=== PATIENT | male | born 1955 | race African-American/Black ===

== ENCOUNTER 2017-12-14 19:20 | Inpatient (IN) | payer OTHER ==
[2017-12-14 19:46] VITALS: BMI 28.2
--- NOTE | 2017-12-14 20:03 | HP ---
CIWA Score - CIWA Score Nausea/Vomitin-Mild Nausea/No Vomiting Muscle Tremors: 2 Anxiety: 3 Agitation: 4-Moderately Restless Paroxysmal Sweats: 2 Orientation: 0-Oriented Tacttile Disturbances: 0-None Auditory Disturbances: 0-None Visual Disturbances: 0-None Headache: 0-None Present CIWA-Ar Total Score: 12 Admission ROS BHS - HPI Chief Complaint: alcohol withdrawal symptoms Allergies/Adverse Reactions: Allergies Allergy/AdvReac Type Severity Reaction Status Date / Time peach [King] Allergy Mild Itching Verified 08/17/13 18:13 History of Present Illness: 62 yo male with hx of cocaine, PCPC, alcohol, heroin, THC dependence is here seeking detox. PMHX: Constipation, GERD and insomnia. Denies suicidal / homicidal ideation or hx of suicide attempts. Last detox [facility] 2013. Longest period of sobriety 3 years. Exam Limitations: No Limitations - Ebola screening Have you been sick,other than usual withdrawal symptoms: No - Review of Systems Constitutional: Chills, Diaphoresis, Changes in sleep EENT: reports: Other (uses reading glasses) Respiratory: reports: No Symptoms reported Cardiac: reports: No Symptoms Reported GI: reports: Constipated, Nausea, Poor Fluid Intake, Indigestion, Abdominal cramping : reports: No Symptoms Reported Musculoskeletal: reports: No Symptoms Reported Integumentary: reports: No Symptoms Reported Neuro: reports: No Symptoms reported Endocrine: reports: Increased Thirst Hematology: reports: No Symptoms Reported Psychiatric: reports: Orientated x3, Anxious Other Systems: Reviewed and Negative Patient History - Patient Medical History Hx Anemia: No Hx Asthma: No Hx Chronic Obstructive Pulmonary Disease (COPD): No Hx Cancer: No Hx Cardiac Disorders: No Hx Congestive Heart Failure: No Hx Hypertension: No Hx Hypercholesterolemia: No Hx Pacemaker: No HX Cerebrovascular Accident: No Hx Seizures: No Hx Dementia: No Hx Diabetes: No Hx Gastrointestinal Disorders: No Hx Liver Disease: No Hx Genitourinary Disorders: No Hx Sexually Transmitted Disorders: No Hx Renal Disease (ESRD): No Hx Thyroid Disease: No Hx Human Immunodeficiency Virus (HIV): No (last tested 2 years, declines testing ) Hx Hepatitis C: No Hx Depression: No Hx Suicide Attempt: No Hx Bipolar Disorder: No Hx Schizophrenia: No - Patient Surgical History Past Surgical History: Yes Hx Neurologic Surgery: No Hx Cataract Extraction: No Hx Cardiac Surgery: No Hx Lung Surgery: No Hx Breast Surgery: No Hx Breast Biopsy: No Hx Abdominal Surgery: Yes (SX FOR PERFORATED ULCER 04/11/12) Hx Appendectomy: No Hx Cholecystectomy: No Hx Genitourinary Surgery: No Hx Section: No Hx Orthopedic Surgery: No Other Surgical History: tonsilectomy 1985 Anesthesia Reaction: No - PPD History Previous Implant?: Yes (last PPD 09/17/17 at [facility] results negative) Documented Results: Negative w/proof Date: 01/14/13 Results: 0mm PPD to be Administered?: No - Smoking Cessation Smoking history: Current some day smoker Have you smoked in the past 12 months: Yes Aproximately how many cigarettes per day: 3 Cigars Per Day: 0 Hx Chewing Tobacco Use: No Initiated information on smoking cessation: Yes 'Breaking Loose' booklet given: 12/14/17 - Substance & Tx. History Hx Alcohol Use: Yes Hx Substance Use: Yes Substance Use Type: None, Alcohol, Cocaine, Heroin, Marijuana Hx Substance Use Treatment: Yes ([facility] 2013) - Substances Abused Alcohol Route: Oral Frequency: 3-6 times per week Amount used: 1 pint Brionna Age of first use: 13 Date of Last Use: 12/14/17 Heroin Route: Inhalation Frequency: 3-6 times per week Amount used: 3 - 5 bags Age of first use: 13 Date of Last Use: 12/12/17 Cocaine Route: Inhalation Frequency: Daily Amount used: 1/2 - 1 gram Age of first use: 13 Date of Last Use: 12/14/17 PCP Route: Smoking Frequency: 3-6 times per week Amount used: 1 - 2 dime bags Age of first use: 23 Date of Last Use: 12/12/17 Marijuana/Hashish Route: Smoking Frequency: 3-6 times per week Amount used: 1 ananth bag Age of first use: 13 Date of Last Use: 12/12/17 Family Disease History - Family Disease History Family Disease History: Other: Father (alcohol,) Admission Physical Exam BHS - Vital Signs Vital Signs: Vital Signs - 24 hr 12/14/17 19:44 Temperature 98.1 F Pulse Rate 80 Respiratory 18 Rate Blood Pressure 134/99 - Physical General Appearance: Yes: Disheveled, Thin, Sweating, Anxious HEENTM: Yes: EOMI, Hearing grossly Normal, Normal ENT Inspection, Normocephalic , Normal Voice, VIKA, Pharynx Normal, Tm's normal Respiratory: Yes: Chest Non-Tender, Lungs Clear, Normal Breath Sounds, No Respiratory Distress, No Accessory Muscle Use Neck: Yes: No masses,lesions,Nodules, Trachea in good position Breast: Yes: Breast Exam Deferred Cardiology: Yes: Regular Rhythm, Regular Rate Abdominal: Yes: Normal Bowel Sounds, Non Tender, Flat, Soft Genitourinary: Yes: Within Normal Limits Back: Yes: Normal Inspection Musculoskeletal: Yes: full range of Motion, Gait Steady, Pelvis Stable Extremities: Yes: Normal Capillary Refill, Normal Inspection, Normal Range of Motion, Non-Tender 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 NML intact, Fully Oriented, Alert, Motor Strength 5/5, Depressed Affect Integumentary: Yes: Normal Color, Warm, Moist Lymphatic: Yes: Within Normal Limits - Diagnostic (1) PCP dependence Current Visit: Yes Status: Acute (2) Alcohol dependence with withdrawal Current Visit: Yes Status: Acute Qualifiers: Complication of substance-induced condition: uncomplicated Qualified Code(s ): F10.230 - Alcohol dependence with withdrawal, uncomplicated (3) Constipation Current Visit: Yes Status: Chronic Qualifiers: Constipation type: unspecified constipation type Qualified Code(s): K59.00 - Constipation, unspecified (4) Cocaine dependence Current Visit: Yes Status: Active (5) Cannabis dependence Current Visit: Yes Status: Acute (6) Gastroesophageal reflux disease Current Visit: Yes Status: Chronic Qualifiers: Esophagitis presence: without esophagitis Qualified Code(s): K21.9 - Gastro -esophageal reflux disease without esophagitis (7) Opiate dependence Current Visit: Yes Status: Acute Cleared for Admission [facility] - Detox or Rehab [facility] Level of Care: Medically Managed Detox Regimen/Protocol: Librium [facility] Breath Alcohol Content Breath Alcohol Content: 0 Urine Drug Screen - Results Drug Screen Negative: No Urine Drug Screen Results: MARIE-Cocaine
[2017-12-14] MEDS ORDERED: guaiFENesin/D-METHORPHAN HB 10 ML UNIT-DOSE CUPS PO PRN (20:10)
[2017-12-14] MEDS ORDERED: chlordiazePOXIDE HCL 25 MG CAPSULE PO ONE (20:10)
[2017-12-14] MEDS ORDERED: MAG HYDROX/AL HYDROX/SIMETH 30 ML UNIT-DOSE CUP PO PRN (20:10)
[2017-12-14] MEDS ORDERED: MENTHOL/PHENOL 1 EACH UD MM PRN (20:10)
[2017-12-14] MEDS ORDERED: MAGNESIUM HYDROX 2400MG/30ML ORAL SUSPENSION 30 ML CUP PO PRN (20:10)
[2017-12-14] MEDS ORDERED: ACETAMINOPHEN 325 MG TABLET (FP) PO PRN (20:10)
[2017-12-14] MEDS ORDERED: chlordiazePOXIDE HCL 25 MG CAPSULE PO PRN (20:10)
[2017-12-14] MEDS ORDERED: P-EPHED 60MG/TRIPROLIDI 2.5MG TABLET PO PRN (20:10)
[2017-12-14] MEDS ORDERED: IBUPROFEN 400 MG TABLET (FP) PO PRN (20:10)
[2017-12-14] MEDS ORDERED: hydrOXYzine PAMOATE 50 MG CAPSULE (FP) PO PRN (20:10)
[2017-12-14] MEDS ORDERED: LOPERAMIDE HCL 2 MG CAPSULE PO PRN (20:10)
[2017-12-14] MEDS ORDERED: MAGNESIUM CITRATE 300 ML BOTTLE PO PRN (20:10)
[2017-12-14] MEDS: DOCUSATE SODIUM 100 MG CAPSULE (FP) PO SCH (22:53)
[2017-12-14] MEDS: THIAMINE HCL 100 MG TABLET (FP) PO SCH (22:53)
[2017-12-14] MEDS: chlordiazePOXIDE HCL 25 MG CAPSULE PO SCH (22:53)
[2017-12-14] MEDS: MELATONIN 5 MG TABLETS PO PRN (22:54)
[2017-12-15 00:06] LABS: URINE APPEARANCE CLEAR; URINE BILIRUBIN NEGATIVE (<2.0 mg/dL); URINE COLOR YELLOW; URINE GLUCOSE (UA) NEGATIVE (NEGATIVE); URINE KETONE NEGATIVE (NEGATIVE); URINE LEUK ESTERASE NEGATIVE (NEGATIVE); URINE NITRITE NEGATIVE (NEGATIVE); URINE UROBILINOGEN NEGATIVE mg/dL (0.2-1.0)
[2017-12-15 01:05] LABS: URINE PROTEIN 1+ (NEGATIVE)
[2017-12-15 01:09] LABS: EPI CELLS RARE /HPF (FEW); URINE MUCUS RARE
[2017-12-15] MEDS: chlordiazePOXIDE HCL 25 MG CAPSULE PO SCH ×4 (05:13→22:06)
[2017-12-15] MEDS: PRENATAL VITAMINS W/ FOLIC ACID TABLET (FP) PO SCH (10:04)
[2017-12-15] MEDS: DOCUSATE SODIUM 100 MG CAPSULE (FP) PO SCH ×2 (10:04→22:06)
[2017-12-15] MEDS: PANTOPRAZOLE 40 MG TABLET (FP) PO SCH (10:04)
[2017-12-15 10:10] LABS: HEMATOCRIT 36.4 % (35.4-49); HEMOGLOBIN 11.7 GM/dL (11.7-16.9); MCH 24.4 pg (25.7-33.7); MCHC 32.2 g/dl (32.0-35.9); MEAN CELL VOLUME 75.8 fl (80-96); MEAN PLT VOLUME 10.8 fl (7.5-11.1); PLATELET COUNT 99 K/MM3 (134-434); RBC 4.81 M/mm3 (4.00-5.60); RDW 15.8 % (11.9-15.9); WHITE BLOOD COUNT 4.4 K/mm3 (4.0-10.0)
[2017-12-15 10:47] LABS: ALBUMIN 3.3 g/dl (3.4-5.0); ANION GAP 8 (8-16); BLOOD UREA NITROGEN 25 mg/dL (7-18); CALCIUM 8.4 mg/dL (8.5-10.1); CHLORIDE 108 mmol/L (98-107); CO2 25 mmol/L (21-32); CREATININE 2.2 mg/dL (0.7-1.3); GLUCOSE,RANDOM 86 mg/dL (74-106); POTASSIUM 3.9 mmol/L (3.5-5.1); SGOT/AST 13 U/L (15-37); SGPT/ALT 15 U/L (12-78); SODIUM 141 mmol/L (136-145)
[2017-12-15 10:54] LABS: ALK PHOS 79 U/L (45-117); BILIRUBIN,TOTAL 0.1 mg/dL (0.2-1.0); TOT PROT 6.6 g/dl (6.4-8.2)
--- NOTE | 2017-12-15 12:09 | EKG ---
Test Reason : Blood Pressure : / mmHG Vent. Rate : 059 BPM Atrial Rate : 059 BPM P-R Int : 266 ms QRS Dur : 082 ms QT Int : 422 ms P-R-T Axes : 060 009 061 degrees QTc Int : 417 ms SINUS BRADYCARDIA WITH 1ST DEGREE A-V BLOCK OTHERWISE NORMAL ECG Confirmed by MD MARIANO, SYDNEE ([id number]) on 12/15/2017 12:08:39 PM Referred By: Doris Mcfadden Confirmed By:SYDNEE QUINTANA MD
--- NOTE | 2017-12-15 12:13 | PN ---
[facility] CIWA - CIWA Score Nausea/Vomitin-No Nausea/No Vomiting Muscle Tremors: 3 Anxiety: 5 Agitation: 4-Moderately Restless Paroxysmal Sweats: 3 Orientation: 0-Oriented Tacttile Disturbances: 3-Moderate Itch/Numb/Burn Auditory Disturbances: 0-None Visual Disturbances: 0-None Headache: 0-None Present CIWA-Ar Total Score: 18 BHS Progress Note (SOAP) Subjective: Anxious, Sweating, Constipation, Tremors. Objective: PATIENT A & O X 3, OBSERVED AMBULATING ON UNIT. NO ACUTE DISTRESS. 12/15/17 12:08 Vital Signs Temperature 96.7 F L 12/15/17 09:36 Pulse Rate 63 12/15/17 09:36 Respiratory Rate 18 12/15/17 09:36 Blood Pressure 135/84 12/15/17 09:36 O2 Sat by Pulse Oximetry (%) Laboratory Tests 12/14/17 12/15/17 12/15/17 23:50 07:15 07:15 WBC 4.4 RBC 4.81 Hgb 11.7 Hct 36.4 MCV 75.8 L MCH 24.4 L MCHC 32.2 RDW 15.8 Plt Count 99 L MPV 10.8 Sodium 141 Potassium 3.9 Chloride 108 H Carbon Dioxide 25 Anion Gap 8 BUN 25 H Creatinine 2.2 H Creat Clearance w eGFR 30.48 Random Glucose 86 Calcium 8.4 L Total Bilirubin 0.1 L AST 13 L D ALT 15 D Alkaline Phosphatase 79 Total Protein 6.6 Albumin 3.3 L Urine Color Yellow Urine Appearance Clear Urine pH 5.0 Ur Specific [place] 1.014 Urine Protein 1+ H Urine Glucose (UA) Negative Urine Ketones Negative Urine Blood Negative Urine Nitrite Negative Urine Bilirubin Negative Urine Urobilinogen Negative Ur Leukocyte Esterase Negative Urine WBC (Auto) 2 Urine RBC (Auto) 1 Ur Epithelial Cells Rare Urine Mucus Rare LABS NOTED. RPR RESULT PENDING. 12/15/17 12:12 Assessment: 12/15/17 12:10 WITHDRAWAL SYMPTOMS. THROMBOCYTOPENIA. 12/15/17 12:12 Plan: CONTINUE DETOX. INCREASE DAILY PO FLUID INTAKE. D/C IBUPROFEN AND MAGNESIUM-CONTAINING MEDS. FOR ABNORMAL ADMISSION RENAL LAB VALUES.
--- NOTE | 2017-12-15 12:37 | CONSULT ---
[facility] Psychiatric Consult - Data Date of interview: 12/15/17 Admission source: [facility] Identifying data: Readmission to [facility] for this 62 y/o AA male seeking detox treatment on 3 for alcohol,cannabis,phencyclidine,opioid and cocaine dependence.Patient is single without dependents,domiciled,unemployed and supported on [facility] benefits. Substance Abuse History: Confirmed by patient in this session.Smoking history: Current some day smoker. Have you smoked in the past 12 months: Yes. Aproximately how many cigarettes per day: 3. Cigars Per Day: 0. Hx Chewing Tobacco Use: No. Initiated information on smoking cessation: Yes. 'Breaking Loose' booklet given: 12/14/17. - Substance & Tx. History. Hx Alcohol Use: Yes. Hx Substance Use: Yes. Substance Use Type: None, Alcohol, Cocaine, Heroin , Marijuana. Hx Substance Use Treatment: Yes ([facility] 2013). - Substances Abused. Alcohol. Route: Oral. Frequency: 3-6 times per week. Amount used : 1 pint Brionna. Age of first use: 13. Date of Last Use: 12/14/17. Heroin. Route: Inhalation. Frequency: 3-6 times per week. Amount used: 3 - 5 bags. Age of first use: 13. Date of Last Use: 12/12/17. Cocaine. Route: Inhalation. Frequency: Daily. Amount used: 1/2 - 1 gram. Age of first use: 13. Date of Last Use: 12/14/17. PCP. Route: Smoking. Frequency: 3-6 times per week. Amount used: 1 - 2 dime bags. Age of first use: 23. Date of Last Use: 12/12/17. Marijuana/Hashish. Route: Smoking. Frequency: 3-6 times per week. Amount used: 1 ananth bag. Age of first use: 13. Date of Last Use: 12/12/17 Medical History: GERD and a history of abdominal surgery (perforated ulcer) + tonsillectomy. Psychiatric History: Patient denies. Physical/Sexual Abuse/Trauma History: Patient denies. Additional Comment: Urine Drug Screen Results: MARIE-Cocaine.Noted. Mental Status Exam - Mental Status Exam Alert and Oriented to: Time, Place, Person Cognitive Function: Good Patient Appearance: Well Groomed (covered with tattoos : arms,forearms,neck) Mood: Hopeful, Euthymic Affect: Appropriate, Normal Range Patient Behavior: Fatigued, Cooperative Speech Pattern: Clear, Appropriate Voice Loudness: Normal Thought Process: Intact, Goal Oriented Thought Disorder: Not Present Hallucinations: Denies Suicidal Ideation: Denies Homicidal Ideation: Denies Insight/Judgement: Poor Sleep: Well Appetite: Good Muscle strength/Tone: Normal Gait/Station: Normal Psychiatric Findings - Problem List ([place] 1, 2,3) (1) Alcohol dependence with withdrawal Status: Acute Qualifiers: Complication of substance-induced condition: uncomplicated Qualified Code(s ): F10.230 - Alcohol dependence with withdrawal, uncomplicated (2) Cocaine dependence Status: Active (3) Nicotine dependence Status: Acute - Initial Treatment Plan Initial Treatment Plan: Psychoeducation.Sleep hygiene.Detoxification.Observation.
[2017-12-15] MEDS: THIAMINE HCL 100 MG TABLET (FP) PO SCH (22:06)
[2017-12-15] MEDS: MELATONIN 5 MG TABLETS PO PRN (22:07)
[2017-12-16] MEDS: chlordiazePOXIDE HCL 25 MG CAPSULE PO SCH ×3 (05:57→17:20)
[2017-12-16] MEDS: PRENATAL VITAMINS W/ FOLIC ACID TABLET (FP) PO SCH (10:06)
[2017-12-16] MEDS: PANTOPRAZOLE 40 MG TABLET (FP) PO SCH (10:06)
[2017-12-16] MEDS: DOCUSATE SODIUM 100 MG CAPSULE (FP) PO SCH ×2 (10:06→22:12)
[2017-12-16] MEDS: SENNOSIDES 8.6MG TABLET (FP) PO SCH ×2 (10:10→22:12)
--- NOTE | 2017-12-16 11:19 | PN ---
S CIWA - CIWA Score Nausea/Vomitin-No Nausea/No Vomiting Muscle Tremors: 2 Anxiety: 4-Mod. Anxious/Guarded Agitation: 4-Moderately Restless Paroxysmal Sweats: 2 Orientation: 0-Oriented Tacttile Disturbances: 2-Mild Itch/Numbness/Burn Auditory Disturbances: 0-None Visual Disturbances: 0-None Headache: 0-None Present CIWA-Ar Total Score: 14 BHS Progress Note (SOAP) Subjective: Sweating, Tremors, Anxious, Constipation. Objective: PATIENT A & O X 3, OBSERVED AMBULATING ON UNIT. NO ACUTE DISTRESS. 12/16/17 11:20 Vital Signs Temperature 97.4 F L 12/16/17 06:17 Pulse Rate 51 L 12/16/17 06:17 Respiratory Rate 18 12/16/17 06:17 Blood Pressure 113/68 12/16/17 06:17 O2 Sat by Pulse Oximetry (%) Laboratory Tests 12/14/17 12/15/17 12/15/17 23:50 07:15 07:15 WBC 4.4 RBC 4.81 Hgb 11.7 Hct 36.4 MCV 75.8 L MCH 24.4 L MCHC 32.2 RDW 15.8 Plt Count 99 L MPV 10.8 Sodium 141 Potassium 3.9 Chloride 108 H Carbon Dioxide 25 Anion Gap 8 BUN 25 H Creatinine 2.2 H Creat Clearance w eGFR 30.48 Random Glucose 86 Calcium 8.4 L Total Bilirubin 0.1 L AST 13 L D ALT 15 D Alkaline Phosphatase 79 Total Protein 6.6 Albumin 3.3 L Urine Color Yellow Urine Appearance Clear Urine pH 5.0 Ur Specific [place] 1.014 Urine Protein 1+ H Urine Glucose (UA) Negative Urine Ketones Negative Urine Blood Negative Urine Nitrite Negative Urine Bilirubin Negative Urine Urobilinogen Negative Ur Leukocyte Esterase Negative Urine WBC (Auto) 2 Urine RBC (Auto) 1 Ur Epithelial Cells Rare Urine Mucus Rare LABS NOTED. RPR RESULT PENDING. 12/16/17 11:22 Assessment: 12/16/17 11:21 WITHDRAWAL SYMPTOMS. Plan: CONTINUE DETOX. SENNA (ALONG WITH PREVIOUSLY PRESCRIBED COLACE) BID FOR CONSTIPATION.
[2017-12-16] MEDS: THIAMINE HCL 100 MG TABLET (FP) PO SCH (22:12)
[2017-12-16] MEDS: MELATONIN 5 MG TABLETS PO PRN (22:12)
[2017-12-16] MEDS: chlordiazePOXIDE 5 MG CAPSULE PO SCH (22:12)
[2017-12-17] MEDS: chlordiazePOXIDE 5 MG CAPSULE PO SCH ×3 (05:43→18:02)
[2017-12-17] MEDS: DOCUSATE SODIUM 100 MG CAPSULE (FP) PO SCH ×2 (10:18→22:18)
[2017-12-17] MEDS: PANTOPRAZOLE 40 MG TABLET (FP) PO SCH (10:19)
[2017-12-17] MEDS: PRENATAL VITAMINS W/ FOLIC ACID TABLET (FP) PO SCH (10:19)
[2017-12-17] MEDS: SENNOSIDES 8.6MG TABLET (FP) PO SCH ×2 (10:19→22:18)
--- NOTE | 2017-12-17 12:59 | PN ---
BHS Progress Note (SOAP) Subjective: Anxious, Constipation (Improving). Objective: PATIENT A & O X 3, OBSERVED AMBULATING ON UNIT. NO ACUTE DISTRESS. 12/17/17 12:57 Vital Signs Temperature 97.5 F L 12/17/17 09:20 Pulse Rate 71 12/17/17 09:20 Respiratory Rate 18 12/17/17 09:20 Blood Pressure 124/77 12/17/17 09:20 O2 Sat by Pulse Oximetry (%) Laboratory Tests 12/14/17 12/15/17 12/15/17 23:50 07:15 07:15 WBC 4.4 RBC 4.81 Hgb 11.7 Hct 36.4 MCV 75.8 L MCH 24.4 L MCHC 32.2 RDW 15.8 Plt Count 99 L MPV 10.8 Sodium 141 Potassium 3.9 Chloride 108 H Carbon Dioxide 25 Anion Gap 8 BUN 25 H Creatinine 2.2 H Creat Clearance w eGFR 30.48 Random Glucose 86 Calcium 8.4 L Total Bilirubin 0.1 L AST 13 L D ALT 15 D Alkaline Phosphatase 79 Total Protein 6.6 Albumin 3.3 L Urine Color Yellow Urine Appearance Clear Urine pH 5.0 Ur Specific [place] 1.014 Urine Protein 1+ H Urine Glucose (UA) Negative Urine Ketones Negative Urine Blood Negative Urine Nitrite Negative Urine Bilirubin Negative Urine Urobilinogen Negative Ur Leukocyte Esterase Negative Urine WBC (Auto) 2 Urine RBC (Auto) 1 Ur Epithelial Cells Rare Urine Mucus Rare RPR Titer 12/15/17 07:15 WBC RBC Hgb Hct MCV MCH MCHC RDW Plt Count MPV Sodium Potassium Chloride Carbon Dioxide Anion Gap BUN Creatinine Creat Clearance w eGFR Random Glucose Calcium Total Bilirubin AST ALT Alkaline Phosphatase Total Protein Albumin Urine Color Urine Appearance Urine pH Ur Specific [place] Urine Protein Urine Glucose (UA) Urine Ketones Urine Blood Urine Nitrite Urine Bilirubin Urine Urobilinogen Ur Leukocyte Esterase Urine WBC (Auto) Urine RBC (Auto) Ur Epithelial Cells Urine Mucus RPR Titer Nonreactive LABS NOTED. Assessment: 12/17/17 12:58 WITHDRAWAL SYMPTOMS. Plan: CONTINUE DETOX. INCREASE DAILY PO FLUID INTAKE. PATIENT SCHEDULED FOR D/C TOMORROW.
[2017-12-17] MEDS: THIAMINE HCL 100 MG TABLET (FP) PO SCH (22:18)
[2017-12-17] MEDS: MELATONIN 5 MG TABLETS PO PRN (22:18)
[2017-12-17] MEDS: chlordiazePOXIDE HCL 10 MG CAPSULE PO SCH (22:18)
[2017-12-18] MEDS: chlordiazePOXIDE HCL 10 MG CAPSULE PO SCH ×3 (05:42→17:34)
[2017-12-18] MEDS: DOCUSATE SODIUM 100 MG CAPSULE (FP) PO SCH ×2 (10:20→22:26)
[2017-12-18] MEDS: PANTOPRAZOLE 40 MG TABLET (FP) PO SCH (10:20)
[2017-12-18] MEDS: PRENATAL VITAMINS W/ FOLIC ACID TABLET (FP) PO SCH (10:20)
[2017-12-18] MEDS: SENNOSIDES 8.6MG TABLET (FP) PO SCH ×2 (10:21→22:27)
--- NOTE | 2017-12-18 16:17 | PN ---
BHS Progress Note (SOAP) Subjective: Anxious, Constipation. Objective: PATIENT A & O X 3, OBSERVED AMBULATING ON UNIT. NO ACUTE DISTRESS. 12/18/17 16:17 Vital Signs Temperature 97.7 F 12/18/17 14:16 Pulse Rate 56 L 12/18/17 14:16 Respiratory Rate 20 12/18/17 14:16 Blood Pressure 108/59 12/18/17 14:16 O2 Sat by Pulse Oximetry (%) Laboratory Tests 12/14/17 12/15/17 12/15/17 23:50 07:15 07:15 WBC 4.4 RBC 4.81 Hgb 11.7 Hct 36.4 MCV 75.8 L MCH 24.4 L MCHC 32.2 RDW 15.8 Plt Count 99 L MPV 10.8 Sodium 141 Potassium 3.9 Chloride 108 H Carbon Dioxide 25 Anion Gap 8 BUN 25 H Creatinine 2.2 H Creat Clearance w eGFR 30.48 Random Glucose 86 Calcium 8.4 L Total Bilirubin 0.1 L AST 13 L D ALT 15 D Alkaline Phosphatase 79 Total Protein 6.6 Albumin 3.3 L Urine Color Yellow Urine Appearance Clear Urine pH 5.0 Ur Specific [place] 1.014 Urine Protein 1+ H Urine Glucose (UA) Negative Urine Ketones Negative Urine Blood Negative Urine Nitrite Negative Urine Bilirubin Negative Urine Urobilinogen Negative Ur Leukocyte Esterase Negative Urine WBC (Auto) 2 Urine RBC (Auto) 1 Ur Epithelial Cells Rare Urine Mucus Rare RPR Titer 12/15/17 07:15 WBC RBC Hgb Hct MCV MCH MCHC RDW Plt Count MPV Sodium Potassium Chloride Carbon Dioxide Anion Gap BUN Creatinine Creat Clearance w eGFR Random Glucose Calcium Total Bilirubin AST ALT Alkaline Phosphatase Total Protein Albumin Urine Color Urine Appearance Urine pH Ur Specific [place] Urine Protein Urine Glucose (UA) Urine Ketones Urine Blood Urine Nitrite Urine Bilirubin Urine Urobilinogen Ur Leukocyte Esterase Urine WBC (Auto) Urine RBC (Auto) Ur Epithelial Cells Urine Mucus RPR Titer Nonreactive LABS NOTED. Assessment: 12/18/17 16:18 WITHDRAWAL SYMPTOMS. Plan: CONTINUE DETOX.
[2017-12-18] MEDS: MELATONIN 5 MG TABLETS PO PRN (22:27)
[2017-12-18] MEDS: THIAMINE HCL 100 MG TABLET (FP) PO SCH (22:27)
--- NOTE | 2017-12-19 09:03 | PN ---
BHS Progress Note (SOAP) Subjective: PATIENT REPORTS THAT HE HAS BEEN HEARING VOICES INSTRUCTING HIM TO HURT HIMSELF. PATIENT REPORTS THAT HE HAS BEEN HEARING THESE VOICES FOR SEVERAL DAYS BUT THAT HE "THOUGHT THAT THE VOICES WOULD GET BETTER ON THEIR OWN." Objective: PATIENT A & O X 3, OBSERVED AMBULATING ON UNIT. 12/19/17 09:01 Vital Signs Temperature 97.9 F 12/19/17 06:25 Pulse Rate 59 L 12/19/17 06:25 Respiratory Rate 18 12/19/17 06:25 Blood Pressure 121/83 12/19/17 06:25 O2 Sat by Pulse Oximetry (%) Laboratory Tests 12/14/17 12/15/17 12/15/17 23:50 07:15 07:15 WBC 4.4 RBC 4.81 Hgb 11.7 Hct 36.4 MCV 75.8 L MCH 24.4 L MCHC 32.2 RDW 15.8 Plt Count 99 L MPV 10.8 Sodium 141 Potassium 3.9 Chloride 108 H Carbon Dioxide 25 Anion Gap 8 BUN 25 H Creatinine 2.2 H Creat Clearance w eGFR 30.48 Random Glucose 86 Calcium 8.4 L Total Bilirubin 0.1 L AST 13 L D ALT 15 D Alkaline Phosphatase 79 Total Protein 6.6 Albumin 3.3 L Urine Color Yellow Urine Appearance Clear Urine pH 5.0 Ur Specific [place] 1.014 Urine Protein 1+ H Urine Glucose (UA) Negative Urine Ketones Negative Urine Blood Negative Urine Nitrite Negative Urine Bilirubin Negative Urine Urobilinogen Negative Ur Leukocyte Esterase Negative Urine WBC (Auto) 2 Urine RBC (Auto) 1 Ur Epithelial Cells Rare Urine Mucus Rare RPR Titer 12/15/17 07:15 WBC RBC Hgb Hct MCV MCH MCHC RDW Plt Count MPV Sodium Potassium Chloride Carbon Dioxide Anion Gap BUN Creatinine Creat Clearance w eGFR Random Glucose Calcium Total Bilirubin AST ALT Alkaline Phosphatase Total Protein Albumin Urine Color Urine Appearance Urine pH Ur Specific [place] Urine Protein Urine Glucose (UA) Urine Ketones Urine Blood Urine Nitrite Urine Bilirubin Urine Urobilinogen Ur Leukocyte Esterase Urine WBC (Auto) Urine RBC (Auto) Ur Epithelial Cells Urine Mucus RPR Titer Nonreactive LABS NOTED. Assessment: 12/19/17 09:01 COMMAND AUDITORY HALLUCINATIONS ( REPORTED BY PATIENT). Plan: PATIENT IMMEDIATELY PLACED ON 1:1 CONTINUOUS OBSERVATION STATUS FOR SAFETY. PATIENT REFERRED TO PSYCHIATRIST DR. KIDD FOR FURTHER EVALUATION.
--- NOTE | 2017-12-19 10:27 | PN ---
Psychiatric Progress Note Vital Signs: Vital Signs Period Temp Pulse Resp BP Sys/Caceres Pulse Ox Last 24 Hr 97.1 F-97.9 F 54-59 16-20 108-125/59-88 Date of Session: 12/19/17 Chief Complaint:: " I am depressed.I hear voices telling me to kill myself." HPI: Case of a 62 y/o AA male admitted to [address] [place] [address] for detoxification treatment for alcohol, heroin,cocaine,phencyclidine,cannabis, initially scheduled for discharge today,who approached his counselor with complaints of dysphoria and command auditory hallucinations to commit suicide.Patient is adamant that, if discharged, he will acquire a gun to end his life. ROS: Patient is alert and fully oriented.Ambulatory.No somatic complaints offered. Current Medications: Active Medications Generic Name Dose Route Start Last Admin Trade Name Freq PRN Reason Stop Dose Admin Acetaminophen 650 mg 12/14/17 20:10 Tylenol - PO Q4H PRN FEVER Docusate Sodium 100 mg 12/14/17 22:00 12/18/17 22:26 Colace - PO 100 mg BID LAVERNE Administration Eucalyptus/Menthol/Phenol/Sorbitol 1 each 12/14/17 20:10 Cepastat Lozenge - MM Q4H PRN SORE THROAT Guaifenesin 10 ml 12/14/17 20:10 Robitussin Dm - PO Q6H PRN COUGH Hydroxyzine Pamoate 50 mg 12/14/17 20:10 Vistaril - PO Q4H PRN AGITATION Loperamide HCl 4 mg 12/14/17 20:10 Imodium - PO Q6H PRN DIARRHEA Melatonin 5 mg 12/14/17 22:00 12/18/17 22:27 Melatonin PO 5 mg HS PRN Administration INSOMNIA Pantoprazole Sodium 40 mg 12/15/17 10:00 12/18/17 10:20 Protonix - PO 40 mg DAILY LAVERNE Administration Multivit/Folic Acid/Iron 1 tab 12/15/17 10:00 12/18/17 10:20 Vitamins (Sjr) - PO 1 tab DAILY LAVERNE Administration Pseudoephedrine/Triprolidine 1 combo 12/14/17 20:10 Actifed - PO TID PRN NASAL CONGESTION Senna 1 tab 12/16/17 10:00 12/18/17 22:27 Senna - PO 1 tab BID LAVERNE Administration Thiamine HCl 100 mg 12/14/17 22:00 12/18/17 22:27 Vitamin B1 - PO 100 mg HS LAVERNE Administration Medication(s) Change(s): None.Except for medications for detoxification, no psychotropic drugs are prescribed.Will medicate with haldol 1 mg po bid.Side effects/beneits discussed with patient.Mr Wise agrees to this plan. Current Side Effect: No Lab tests ordered: No Lab tests reviewed: Yes Provider note:: Case presented by medical [employer] Simon.Chart reviewed.Patient is interviewed.Mr iWse reports that he has been feeling increasingly depressed, hopeless and demoralized.He states that the " voices " have become louder, more pejorative and persistent." They are saying that I am a failure and that I better kill myself." Patient indicates that he has been experiencing these hallucinations for a few days.He states that he " does not trust " himself and he is fearful that, if allowed to return home, he will follow the commands of " the voices ".Patient seems to be determined to escalate into action as evidenced by his intent/plan to acquire a weapon (gun) to commit suicide.Mr Wise is in acute crisis and, at this time, he represents a clear + immediate danger to himself.Discharge is cancelled.Patient is currently under Constant Observation (1:1) for safety.Mr Wise needs inpatient psychiatric care at another institution.Awaits bed at [facility]. Total face to face time:: 45 Mental Status Exam - Mental Status Exam Alert and Oriented to: Time, Place, Person Cognitive Function: Good Patient Appearance: Well Groomed Mood: Nervous, Withdrawn, Anxious Affect: Mood Congruent, Constricted Patient Behavior: Cooperative Speech Pattern: Clear, Appropriate Voice Loudness: Normal Thought Process: Intact, Goal Oriented Thought Disorder: Not Present Hallucinations: Auditory (voices berating hime and instructing him to get a weapon and kill himself) Suicidal Ideation: Current, Plan Homicidal Ideation: Denies Insight/Judgement: Poor, Impaired Sleep: Well Appetite: Fair Muscle strength/Tone: Normal Gait/Station: Normal Psychiatric Treatment Plan - Problem List (1) Suicide risk Comment: . (2) Psychosis Comment: . (3) Alcohol dependence with withdrawal Qualifiers: Complication of substance-induced condition: uncomplicated Qualified Code(s ): F10.230 - Alcohol dependence with withdrawal, uncomplicated Comment: . (4) Cocaine dependence Comment: . (6) Substance induced mood disorder Comment: .
[2017-12-19] MEDS: DOCUSATE SODIUM 100 MG CAPSULE (FP) PO SCH ×2 (10:46→22:15)
[2017-12-19] MEDS: PANTOPRAZOLE 40 MG TABLET (FP) PO SCH (10:46)
[2017-12-19] MEDS: PRENATAL VITAMINS W/ FOLIC ACID TABLET (FP) PO SCH (10:47)
[2017-12-19] MEDS: SENNOSIDES 8.6MG TABLET (FP) PO SCH ×2 (10:47→22:15)
[2017-12-19] MEDS ORDERED: HALOPERIDOL 1 MG TABLET (FP) PO PRN (12:39)
--- NOTE | 2017-12-19 12:41 | PN ---
[facility] Progress Note Note: Psychiatry Attending's note : Spoke to the production cook psychiatrist, Dr Gomez. At [facility] ([phone]). No bed available.
[2017-12-19] MEDS ORDERED: HALOPERIDOL 1 MG TABLET (FP) PO ONE (12:45)
[2017-12-19] MEDS: THIAMINE HCL 100 MG TABLET (FP) PO SCH (22:15)
[2017-12-19] MEDS: MELATONIN 5 MG TABLETS PO PRN (22:16)
[2017-12-20 09:23] VITALS: TEMP 98
[2017-12-20] MEDS: PANTOPRAZOLE 40 MG TABLET (FP) PO SCH (11:04)
[2017-12-20] MEDS: DOCUSATE SODIUM 100 MG CAPSULE (FP) PO SCH (11:04)
[2017-12-20] MEDS: PRENATAL VITAMINS W/ FOLIC ACID TABLET (FP) PO SCH (11:04)
[2017-12-20] MEDS: SENNOSIDES 8.6MG TABLET (FP) PO SCH (11:04)
--- NOTE | 2017-12-20 11:46 | PN ---
[facility] Progress Note Note: Psychiatry Attending's geriatric personal care aide note : Spoke to RN Cici. Issue : follow up of patient. Chart reviewed. Psychiatric re-evaluation : pending. Endorsed to Dr Nguyen.
[2017-12-20 12:01] VITALS: BP 94/60; PULSE 67
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
[2017-12-20] MEDS ORDERED: ZOLPIDEM TARTRATE 5 MG TABLET PO PRN (12:18)
--- NOTE | 2017-12-20 12:42 | PN ---
[facility] Progress Note (SOAP) Subjective: States feel good Slept well Still hearing voices to kill himself or others Objective: 12/20/17 12:41 still on 1:1 monitoring Not in acute distress Vital Signs Temperature 98 F 12/20/17 09:23 Pulse Rate 67 12/20/17 12:00 Respiratory Rate 18 12/20/17 12:00 Blood Pressure 94/60 12/20/17 12:00 O2 Sat by Pulse Oximetry (%) Assessment: 12/20/17 12:44 Detox completed, pending safe discharge 1;1 monitoring for safety Plan: Detox completed, pending clearance from psych on the next step
== END 2017-12-20 13:58 | disposition short-term general hospital (02) | DRG 897 ==
LOC: YASAS 19:20 → Y3N 21:06
PROVIDERS: ADMIT Surgery; ATTEND Surgery
PROC: HZ2ZZZZ Detoxification Services for Substance Abuse Treatment (ICD-10-PCS; principal; 2017-12-14)
DX: F11.20 Opioid dependence, uncomplicated (principal); F10.230 Alcohol dependence with withdrawal, uncomplicated; F14.20 Cocaine dependence, uncomplicated; F16.20 Hallucinogen dependence, uncomplicated; F33.9 Major depressive disorder, recurrent, unspecified; F19.282 Other psychoactive substance dependence with psychoactive substance-induced sleep disorder; R45.851 Suicidal ideations; F12.20 Cannabis dependence, uncomplicated; F17.210 Nicotine dependence, cigarettes, uncomplicated; F19.24 Other psychoactive substance dependence with psychoactive substance-induced mood disorder; F29 Unspecified psychosis not due to a substance or known physiological condition; K21.9 Gastro-esophageal reflux disease without esophagitis; K59.00 Constipation, unspecified
CPT/HCPCS: 36415; 80053; 81003; 81015; 85027; 86593; 93005; 93010

== ENCOUNTER 2022-07-16 11:07 | Inpatient (IN) | payer OTHER ==
[2022-07-16 14:35] VITALS: BMI 28.8
[2022-07-16] MEDS ORDERED: guaiFENesin 200 MG/10 ML 10 ML UNIT-DOSE CUPS PO PRN (16:43)
[2022-07-16] MEDS ORDERED: P-EPHED 60MG/TRIPROLIDI 2.5MG TABLET PO PRN (16:43)
[2022-07-16] MEDS ORDERED: MAGNESIUM HYDROX 2400MG/30ML ORAL SUSPENSION 30 ML CUP PO PRN (16:43)
[2022-07-16] MEDS ORDERED: BENZOCAINE/MENTHOL (CHLORASEPTIC ) LOZENGE MM PRN (16:43)
[2022-07-16] MEDS ORDERED: POLYETHYLENE GLYCOL (HEALTHYLAX) 3350 17 GM PACKET PO PRN (16:43)
[2022-07-16] MEDS ORDERED: LOPERAMIDE HCL 2 MG CAPSULE PO PRN (16:43)
[2022-07-16] MEDS ORDERED: MAG HYDROX/AL HYDROX/SIMETH 30 ML UNIT-DOSE CUP PO PRN (16:43)
[2022-07-16] MEDS ORDERED: ACETAMINOPHEN 325 MG TABLET (FP) PO PRN (16:43)
[2022-07-16] MEDS ORDERED: IBUPROFEN 400 MG TABLET (FP) PO PRN (16:43)
[2022-07-16] MEDS ORDERED: NICOTINE 10 MG CARTRIDGE (INHALER) IH PRN (16:43)
[2022-07-16] MEDS: THIAMINE HCL 100 MG TABLET (FP) PO SCH (22:03)
[2022-07-16] MEDS: MELATONIN 5 MG TABLETS PO SCH (22:03)
[2022-07-16] MEDS: hydrOXYzine PAMOATE 25 MG CAPSULE (FP) PO PRN (22:04)
[2022-07-16 22:23] VITALS: RESP 18
[2022-07-17] MEDS: PRENATAL VITAMINS W/ FOLIC ACID TABLET (FP) PO SCH (10:22)
[2022-07-17] MEDS: DOCUSATE SODIUM 100 MG CAPSULE (FP) PO SCH ×2 (11:09→22:05)
[2022-07-17] MEDS: amLODIPine BESYLATE 5 MG TABLET (FP) PO SCH (11:09)
[2022-07-17 12:25] LABS: HEMATOCRIT 36.9 % (35.4-49); HEMOGLOBIN 11.9 GM/dL (11.7-16.9); MCH 24.3 pg (25.7-33.7); MCHC 32.3 g/dl (32.0-35.9); MEAN CELL VOLUME 75.4 fl (80-96); PLATELET COUNT 133 10^3/uL (134-434); RDW 16.1 % (11.9-15.9); WHITE BLOOD COUNT 3.9 K/mm3 (4.0-10.0)
[2022-07-17 12:25] LABS: EPI CELLS 2 /uL (0-25.1); HYALINE CASTS 0 /uL (0-3.1); URINE APPEARANCE CLEAR; URINE BACTERIA 2 /uL (0-1359); URINE BILIRUBIN NEGATIVE (NEGATIVE); URINE COLOR YELLOW; URINE GLUCOSE (UA) NEGATIVE (NEGATIVE); URINE KETONE NEGATIVE (NEGATIVE); URINE LEUK ESTERASE NEGATIVE (NEGATIVE); URINE NITRITE NEGATIVE (NEGATIVE); URINE PROTEIN 2+ (NEGATIVE); URINE RBC 16 /uL (0-23.9); URINE UROBILINOGEN 0.2 mg/dL (0.2-1.0); URINE WBC 6 /uL (0-25.8)
[2022-07-17 12:35] LABS: BLOOD UREA NITROGEN 40.5 mg/dL (7-18)
[2022-07-17 12:36] LABS: ALBUMIN 3.5 g/dl (3.4-5.0); CALCIUM 8.8 mg/dL (8.5-10.1)
[2022-07-17 12:37] LABS: CREATININE 2.6 mg/dL (0.55-1.3)
[2022-07-17 12:38] LABS: BILIRUBIN,TOTAL 0.5 mg/dL (0.2-1); TOT PROT 7.3 g/dl (6.4-8.2)
[2022-07-17] MEDS: hydrOXYzine PAMOATE 25 MG CAPSULE (FP) PO PRN (22:05)
[2022-07-17] MEDS: traZODone HCL 100 MG TABLET (FP) PO PRN (22:05)
[2022-07-17] MEDS: MELATONIN 5 MG TABLETS PO SCH (22:05)
[2022-07-17] MEDS: THIAMINE HCL 100 MG TABLET (FP) PO SCH (22:05)
[2022-07-18] MEDS: PRENATAL VITAMINS W/ FOLIC ACID TABLET (FP) PO SCH (10:34)
[2022-07-18] MEDS: amLODIPine BESYLATE 5 MG TABLET (FP) PO SCH (10:34)
[2022-07-18] MEDS: DOCUSATE SODIUM 100 MG CAPSULE (FP) PO SCH ×2 (10:34→21:18)
[2022-07-18] MEDS: THIAMINE HCL 100 MG TABLET (FP) PO SCH (21:18)
[2022-07-18] MEDS: MELATONIN 5 MG TABLETS PO SCH (21:19)
[2022-07-18] MEDS: traZODone HCL 100 MG TABLET (FP) PO PRN (21:20)
[2022-07-18] MEDS: hydrOXYzine PAMOATE 25 MG CAPSULE (FP) PO PRN (21:20)
[2022-07-18] MEDS: APIXABAN 5 MG TABLET PO SCH (22:16)
[2022-07-19] MEDS: amLODIPine BESYLATE 5 MG TABLET (FP) PO SCH (10:19)
[2022-07-19] MEDS: DOCUSATE SODIUM 100 MG CAPSULE (FP) PO SCH ×2 (10:19→21:51)
[2022-07-19] MEDS: APIXABAN 5 MG TABLET PO SCH ×2 (10:19→21:51)
[2022-07-19] MEDS: PRENATAL VITAMINS W/ FOLIC ACID TABLET (FP) PO SCH (10:19)
[2022-07-19] MEDS: THIAMINE HCL 100 MG TABLET (FP) PO SCH (21:51)
[2022-07-19] MEDS: MELATONIN 5 MG TABLETS PO SCH (21:51)
[2022-07-19] MEDS: traZODone HCL 100 MG TABLET (FP) PO PRN (21:51)
[2022-07-20] MEDS: PRENATAL VITAMINS W/ FOLIC ACID TABLET (FP) PO SCH (10:21)
[2022-07-20] MEDS: amLODIPine BESYLATE 5 MG TABLET (FP) PO SCH (10:21)
[2022-07-20] MEDS: APIXABAN 5 MG TABLET PO SCH ×2 (10:21→21:16)
[2022-07-20] MEDS: DOCUSATE SODIUM 100 MG CAPSULE (FP) PO SCH ×2 (10:22→21:16)
[2022-07-20] MEDS: traZODone HCL 100 MG TABLET (FP) PO PRN (21:16)
[2022-07-20] MEDS: THIAMINE HCL 100 MG TABLET (FP) PO SCH (21:17)
[2022-07-20] MEDS: MELATONIN 5 MG TABLETS PO SCH (22:15)
[2022-07-21] MEDS: amLODIPine BESYLATE 5 MG TABLET (FP) PO SCH (10:18)
[2022-07-21] MEDS: DOCUSATE SODIUM 100 MG CAPSULE (FP) PO SCH ×2 (10:18→22:01)
[2022-07-21] MEDS: PRENATAL VITAMINS W/ FOLIC ACID TABLET (FP) PO SCH (10:18)
[2022-07-21] MEDS: APIXABAN 5 MG TABLET PO SCH ×2 (10:18→22:01)
[2022-07-21] MEDS: MELATONIN 5 MG TABLETS PO SCH (22:01)
[2022-07-21] MEDS: THIAMINE HCL 100 MG TABLET (FP) PO SCH (22:02)
[2022-07-22 07:18] VITALS: PULSE 66; TEMP 98
[2022-07-22] MEDS: PRENATAL VITAMINS W/ FOLIC ACID TABLET (FP) PO SCH (09:57)
[2022-07-22] MEDS: DOCUSATE SODIUM 100 MG CAPSULE (FP) PO SCH (09:57)
[2022-07-22] MEDS: APIXABAN 5 MG TABLET PO SCH (09:57)
[2022-07-22] MEDS: amLODIPine BESYLATE 5 MG TABLET (FP) PO SCH (09:57)
[2022-07-22 11:23] VITALS: BP 145/94
== END 2022-07-22 14:15 | disposition home or self-care (01) | DRG 895 ==
LOC: YASAS 11:07 → Y5N 20:36
PROVIDERS: ADMIT Allergy & Immunology; ATTEND Allergy & Immunology
PROC: HZ42ZZZ Group Counseling for Substance Abuse Treatment, Cognitive-Behavioral (ICD-10-PCS; principal; 2022-07-16)
DX: F11.20 Opioid dependence, uncomplicated (principal); F14.20 Cocaine dependence, uncomplicated; F19.282 Other psychoactive substance dependence with psychoactive substance-induced sleep disorder; I82.5Y3 Chronic embolism and thrombosis of unspecified deep veins of proximal lower extremity, bilateral; F10.20 Alcohol dependence, uncomplicated; F12.20 Cannabis dependence, uncomplicated; F17.210 Nicotine dependence, cigarettes, uncomplicated; F10.282 Alcohol dependence with alcohol-induced sleep disorder; F19.24 Other psychoactive substance dependence with psychoactive substance-induced mood disorder; F32.9 Major depressive disorder, single episode, unspecified; F29 Unspecified psychosis not due to a substance or known physiological condition; I10 Essential (primary) hypertension; K21.9 Gastro-esophageal reflux disease without esophagitis; K59.00 Constipation, unspecified; Z79.01 Long term (current) use of anticoagulants
CPT/HCPCS: 36415; 80053; 81003; 85027; 86780; 87811; C9803-CS; U0003; U0005

== ENCOUNTER 2022-09-21 15:02 | Inpatient (IN) | payer OTHER ==
[2022-09-21 15:54] VITALS: BMI 27.7
[2022-09-21] MEDS ORDERED: ACETAMINOPHEN 325 MG TABLET (FP) PO PRN (16:34)
[2022-09-21] MEDS ORDERED: NALOXONE HCL 0.4 MG/ML VIAL IM PRN (16:34)
[2022-09-21] MEDS ORDERED: MAGNESIUM HYDROX 2400MG/30ML ORAL SUSPENSION 30 ML CUP PO PRN (16:34)
[2022-09-21] MEDS ORDERED: hydrOXYzine PAMOATE 25 MG CAPSULE (FP) PO PRN (16:34)
[2022-09-21] MEDS ORDERED: BENZONATATE 200 MG CAPSULE PO PRN (16:34)
[2022-09-21] MEDS ORDERED: ONDANSETRON *ODT* 4 MG TABLET SL PRN (16:34)
[2022-09-21] MEDS ORDERED: guaiFENesin 600 MG TABLET.ER (FP) PO PRN (16:34)
[2022-09-21] MEDS ORDERED: MAG HYDROX/AL HYDROX/SIMETH 30 ML UNIT-DOSE CUP PO PRN (16:34)
[2022-09-21] MEDS ORDERED: DICYCLOMINE HCL 10 MG CAPSULE PO PRN (16:34)
[2022-09-21] MEDS ORDERED: BENZOCAINE/MENTHOL (CHLORASEPTIC ) LOZENGE MM PRN (16:34)
[2022-09-21] MEDS ORDERED: LOPERAMIDE HCL 2 MG CAPSULE PO PRN (16:34)
[2022-09-21] MEDS ORDERED: POLYETHYLENE GLYCOL (HEALTHYLAX) 3350 17 GM PACKET PO PRN (16:34)
[2022-09-21] MEDS ORDERED: NICOTINE 10 MG CARTRIDGE (INHALER) IH PRN (16:34)
[2022-09-21] MEDS ORDERED: NALOXONE HCL (KLOXXADO) 8 MG SPRAY NS PRN (16:34)
[2022-09-21] MEDS: DOCUSATE SODIUM 100 MG CAPSULE (FP) PO SCH (22:32)
[2022-09-21] MEDS: THIAMINE HCL 100 MG TABLET (FP) PO SCH (22:32)
[2022-09-21] MEDS: APIXABAN 5 MG TABLET PO SCH (22:32)
[2022-09-21] MEDS: MELATONIN 5 MG TABLETS PO SCH (22:32)
[2022-09-22] MEDS ORDERED: OMEPRAZOLE MAGNESIUM PO SCH (10:00)
[2022-09-22] MEDS ORDERED: chlordiazePOXIDE HCL 25 MG CAPSULE PO PRN (10:07)
[2022-09-22] MEDS: APIXABAN 5 MG TABLET PO SCH ×2 (10:40→22:54)
[2022-09-22] MEDS: DOCUSATE SODIUM 100 MG CAPSULE (FP) PO SCH ×2 (10:41→22:54)
[2022-09-22] MEDS: HYDROCHLOROTHIAZIDE 25 MG TABLET (FP) PO SCH (10:41)
[2022-09-22] MEDS: amLODIPine BESYLATE 5 MG TABLET (FP) PO SCH (10:41)
[2022-09-22] MEDS: PRENATAL VITAMINS W/ FOLIC ACID TABLET (FP) PO SCH (10:41)
[2022-09-22] MEDS: PANTOPRAZOLE 40 MG TABLET PO SCH (10:41)
[2022-09-22] MEDS: chlordiazePOXIDE HCL 25 MG CAPSULE PO SCH ×3 (10:43→22:55)
[2022-09-22 11:43] LABS: CALCIUM 8.1 mg/dL (8.5-10.1)
[2022-09-22 11:44] LABS: ALBUMIN 3.1 g/dl (3.4-5.0)
[2022-09-22 11:45] LABS: CREATININE 3.3 mg/dL (0.55-1.3)
[2022-09-22 11:47] LABS: BILIRUBIN,TOTAL 0.3 mg/dL (0.2-1); TOT PROT 6.5 g/dl (6.4-8.2)
[2022-09-22 11:50] LABS: HEMATOCRIT 33.7 % (35.4-49); MCH 24.3 pg (25.7-33.7); MCHC 32.6 g/dl (32.0-35.9); MEAN CELL VOLUME 74.6 fl (80-96); MEAN PLT VOLUME 9.6 fl (7.5-11.1); PLATELET COUNT 148 10^3/uL (134-434); RBC 4.52 M/mm3 (4.00-5.60); RDW 16.5 % (11.9-15.9); WHITE BLOOD COUNT 4.5 K/mm3 (4.0-10.0)
[2022-09-22] MEDS: MELATONIN 5 MG TABLETS PO SCH (22:54)
[2022-09-22] MEDS: THIAMINE HCL 100 MG TABLET (FP) PO SCH (22:54)
[2022-09-23] MEDS: chlordiazePOXIDE HCL 25 MG CAPSULE PO SCH ×4 (05:23→22:17)
[2022-09-23] MEDS: PRENATAL VITAMINS W/ FOLIC ACID TABLET (FP) PO SCH (10:17)
[2022-09-23] MEDS: DOCUSATE SODIUM 100 MG CAPSULE (FP) PO SCH ×2 (10:17→22:16)
[2022-09-23] MEDS: amLODIPine BESYLATE 5 MG TABLET (FP) PO SCH (10:17)
[2022-09-23] MEDS: HYDROCHLOROTHIAZIDE 25 MG TABLET (FP) PO SCH (10:17)
[2022-09-23] MEDS: APIXABAN 5 MG TABLET PO SCH ×2 (10:17→22:16)
[2022-09-23] MEDS: PANTOPRAZOLE 40 MG TABLET PO SCH (10:17)
[2022-09-23] MEDS: THIAMINE HCL 100 MG TABLET (FP) PO SCH (22:16)
[2022-09-23] MEDS: MELATONIN 5 MG TABLETS PO SCH (22:16)
[2022-09-24] MEDS: chlordiazePOXIDE HCL 25 MG CAPSULE PO SCH ×4 (05:23→22:42)
[2022-09-24] MEDS: DOCUSATE SODIUM 100 MG CAPSULE (FP) PO SCH ×2 (10:17→22:42)
[2022-09-24] MEDS: amLODIPine BESYLATE 5 MG TABLET (FP) PO SCH (10:17)
[2022-09-24] MEDS: PRENATAL VITAMINS W/ FOLIC ACID TABLET (FP) PO SCH (10:17)
[2022-09-24] MEDS: HYDROCHLOROTHIAZIDE 25 MG TABLET (FP) PO SCH (10:17)
[2022-09-24] MEDS: APIXABAN 5 MG TABLET PO SCH ×2 (10:18→22:43)
[2022-09-24] MEDS: PANTOPRAZOLE 40 MG TABLET PO SCH (10:18)
[2022-09-24 11:46] LABS: CALCIUM 8.9 mg/dL (8.5-10.1)
[2022-09-24 11:47] LABS: ALBUMIN 3.2 g/dl (3.4-5.0); BLOOD UREA NITROGEN 31.8 mg/dL (7-18)
[2022-09-24 11:50] LABS: CREATININE 2.9 mg/dL (0.55-1.3)
[2022-09-24 11:52] LABS: TOT PROT 6.7 g/dl (6.4-8.2)
[2022-09-24 11:53] LABS: BILIRUBIN,TOTAL 1.8 mg/dL (0.2-1)
[2022-09-24] MEDS: THIAMINE HCL 100 MG TABLET (FP) PO SCH (22:42)
[2022-09-24] MEDS: MELATONIN 5 MG TABLETS PO SCH (22:42)
[2022-09-25] MEDS ORDERED: chlordiazePOXIDE HCL 10 MG CAPSULE PO PRN
[2022-09-25] MEDS: chlordiazePOXIDE HCL 10 MG CAPSULE PO SCH ×4 (05:28→22:15)
[2022-09-25] MEDS: PANTOPRAZOLE 40 MG TABLET PO SCH (10:21)
[2022-09-25] MEDS: DOCUSATE SODIUM 100 MG CAPSULE (FP) PO SCH ×2 (10:21→22:16)
[2022-09-25] MEDS: APIXABAN 5 MG TABLET PO SCH ×2 (10:21→22:16)
[2022-09-25] MEDS: amLODIPine BESYLATE 5 MG TABLET (FP) PO SCH (10:21)
[2022-09-25] MEDS: PRENATAL VITAMINS W/ FOLIC ACID TABLET (FP) PO SCH (10:21)
[2022-09-25] MEDS: HYDROCHLOROTHIAZIDE 25 MG TABLET (FP) PO SCH (10:21)
[2022-09-25] MEDS: MELATONIN 5 MG TABLETS PO SCH (22:16)
[2022-09-25] MEDS: THIAMINE HCL 100 MG TABLET (FP) PO SCH (22:16)
[2022-09-26] MEDS: chlordiazePOXIDE HCL 10 MG CAPSULE PO SCH ×2 (06:00→17:53)
[2022-09-26] MEDS: PRENATAL VITAMINS W/ FOLIC ACID TABLET (FP) PO SCH (10:21)
[2022-09-26] MEDS: HYDROCHLOROTHIAZIDE 25 MG TABLET (FP) PO SCH (10:21)
[2022-09-26] MEDS: DOCUSATE SODIUM 100 MG CAPSULE (FP) PO SCH ×2 (10:21→22:21)
[2022-09-26] MEDS: PANTOPRAZOLE 40 MG TABLET PO SCH (10:21)
[2022-09-26] MEDS: APIXABAN 5 MG TABLET PO SCH ×2 (10:21→22:20)
[2022-09-26] MEDS: amLODIPine BESYLATE 5 MG TABLET (FP) PO SCH (10:22)
[2022-09-26] MEDS: MELATONIN 5 MG TABLETS PO SCH (22:21)
[2022-09-26] MEDS: THIAMINE HCL 100 MG TABLET (FP) PO SCH (22:21)
[2022-09-27] MEDS ORDERED: chlordiazePOXIDE HCL 10 MG CAPSULE PO ONE (05:00)
[2022-09-27 09:12] VITALS: BP 130/83; PULSE 64; RESP 18; TEMP 97.7
[2022-09-27] MEDS: amLODIPine BESYLATE 5 MG TABLET (FP) PO SCH (10:39)
[2022-09-27] MEDS: HYDROCHLOROTHIAZIDE 25 MG TABLET (FP) PO SCH (10:39)
[2022-09-27] MEDS: APIXABAN 5 MG TABLET PO SCH (10:39)
[2022-09-27] MEDS: PRENATAL VITAMINS W/ FOLIC ACID TABLET (FP) PO SCH (10:39)
[2022-09-27] MEDS: PANTOPRAZOLE 40 MG TABLET PO SCH (10:39)
[2022-09-27] MEDS: DOCUSATE SODIUM 100 MG CAPSULE (FP) PO SCH (10:39)
== END 2022-09-27 12:09 | disposition home or self-care (01) | DRG 897 ==
LOC: YASAS 15:02 → Y3N 17:08 → UNDOADMIN 17:08
PROVIDERS: ADMIT Allergy & Immunology; ATTEND Surgery
PROC: HZ2ZZZZ Detoxification Services for Substance Abuse Treatment (ICD-10-PCS; principal; 2022-09-21)
DX: F10.230 Alcohol dependence with withdrawal, uncomplicated (principal); F14.20 Cocaine dependence, uncomplicated; F12.20 Cannabis dependence, uncomplicated; F17.210 Nicotine dependence, cigarettes, uncomplicated; I10 Essential (primary) hypertension; K21.9 Gastro-esophageal reflux disease without esophagitis; Z86.718 Personal history of other venous thrombosis and embolism; Z79.01 Long term (current) use of anticoagulants
CPT/HCPCS: 36415; 80053; 85027; 86780; 87811; C9803-CS; U0003; U0005

== ENCOUNTER 2022-09-27 12:30 | Inpatient (IN) | payer OTHER ==
[2022-09-27] MEDS ORDERED: NALOXONE HCL (KLOXXADO) 8 MG SPRAY NS PRN (14:08)
[2022-09-27] MEDS ORDERED: NICOTINE 10 MG CARTRIDGE (INHALER) IH PRN (14:08)
[2022-09-27] MEDS ORDERED: POLYETHYLENE GLYCOL (HEALTHYLAX) 3350 17 GM PACKET PO PRN (14:08)
[2022-09-27] MEDS ORDERED: LOPERAMIDE HCL 2 MG CAPSULE PO PRN (14:08)
[2022-09-27] MEDS ORDERED: BENZOCAINE/MENTHOL (CHLORASEPTIC ) LOZENGE MM PRN (14:08)
[2022-09-27] MEDS ORDERED: IBUPROFEN 600 MG TABLET (FP) PO PRN (14:08)
[2022-09-27] MEDS ORDERED: COLLOIDAL OATMEAL 1 BAR EACH TP PRN (14:08)
[2022-09-27] MEDS ORDERED: NALOXONE HCL 0.4 MG/ML VIAL IVPUSH PRN (14:08)
[2022-09-27] MEDS ORDERED: MAGNESIUM HYDROX 2400MG/30ML ORAL SUSPENSION 30 ML CUP PO PRN (14:08)
[2022-09-27] MEDS ORDERED: BENZONATATE 200 MG CAPSULE PO PRN (14:08)
[2022-09-27] MEDS ORDERED: ACETAMINOPHEN 325 MG TABLET (FP) PO PRN (14:08)
[2022-09-27] MEDS ORDERED: METHOCARBAMOL 500 MG TABLET PO PRN (14:08)
[2022-09-27] MEDS ORDERED: MAG HYDROX/AL HYDROX/SIMETH 30 ML UNIT-DOSE CUP PO PRN (14:08)
[2022-09-27] MEDS ORDERED: AMMONIUM LACTATE 12% LOTION 225 GM BOTTLE TP PRN (14:08)
[2022-09-27] MEDS ORDERED: hydrOXYzine PAMOATE 25 MG CAPSULE (FP) PO PRN (14:08)
[2022-09-27] MEDS ORDERED: IBUPROFEN 400 MG TABLET (FP) PO PRN (14:08)
[2022-09-27] MEDS ORDERED: guaiFENesin 600 MG TABLET.ER (FP) PO PRN (14:08)
[2022-09-27] MEDS: PRENATAL VITAMINS W/ FOLIC ACID TABLET (FP) PO SCH (15:54)
[2022-09-27] MEDS: DOCUSATE SODIUM 100 MG CAPSULE (FP) PO SCH (21:53)
[2022-09-27] MEDS: MELATONIN 5 MG TABLETS PO SCH (21:53)
[2022-09-27] MEDS: traZODone HCL 100 MG TABLET (FP) PO SCH (21:53)
[2022-09-27] MEDS: APIXABAN 5 MG TABLET PO SCH (21:53)
[2022-09-27] MEDS: THIAMINE HCL 100 MG TABLET (FP) PO SCH (21:53)
[2022-09-28] MEDS ORDERED: SERTRALINE HCL 50 MG TABLET (FP) PO SCH (10:00)
[2022-09-28] MEDS ORDERED: NIFEDIPINE 30 MG PO SCH (10:00)
[2022-09-28] MEDS: DOCUSATE SODIUM 100 MG CAPSULE (FP) PO SCH ×2 (11:00→21:31)
[2022-09-28] MEDS: APIXABAN 5 MG TABLET PO SCH ×2 (11:00→21:31)
[2022-09-28] MEDS: PANTOPRAZOLE 40 MG TABLET PO SCH (11:00)
[2022-09-28] MEDS: PRENATAL VITAMINS W/ FOLIC ACID TABLET (FP) PO SCH (11:00)
[2022-09-28] MEDS: HYDROCHLOROTHIAZIDE 25 MG TABLET (FP) PO SCH (11:16)
[2022-09-28] MEDS: amLODIPine BESYLATE 5 MG TABLET (FP) PO SCH (11:17)
[2022-09-28] MEDS: traZODone HCL 100 MG TABLET (FP) PO SCH (21:31)
[2022-09-28] MEDS: MELATONIN 5 MG TABLETS PO SCH (21:31)
[2022-09-28] MEDS: THIAMINE HCL 100 MG TABLET (FP) PO SCH (21:31)
[2022-09-29] MEDS: PRENATAL VITAMINS W/ FOLIC ACID TABLET (FP) PO SCH (09:42)
[2022-09-29] MEDS: HYDROCHLOROTHIAZIDE 25 MG TABLET (FP) PO SCH (09:43)
[2022-09-29] MEDS: PANTOPRAZOLE 40 MG TABLET PO SCH (09:43)
[2022-09-29] MEDS: amLODIPine BESYLATE 5 MG TABLET (FP) PO SCH (09:43)
[2022-09-29] MEDS: APIXABAN 5 MG TABLET PO SCH ×2 (09:43→21:24)
[2022-09-29] MEDS: DOCUSATE SODIUM 100 MG CAPSULE (FP) PO SCH ×2 (09:43→21:24)
[2022-09-29] MEDS: THIAMINE HCL 100 MG TABLET (FP) PO SCH (21:23)
[2022-09-29] MEDS: MELATONIN 5 MG TABLETS PO SCH (21:23)
[2022-09-29] MEDS: traZODone HCL 100 MG TABLET (FP) PO SCH (21:24)
[2022-09-30] MEDS: amLODIPine BESYLATE 5 MG TABLET (FP) PO SCH (10:40)
[2022-09-30] MEDS: PRENATAL VITAMINS W/ FOLIC ACID TABLET (FP) PO SCH (10:40)
[2022-09-30] MEDS: APIXABAN 5 MG TABLET PO SCH ×2 (10:40→21:09)
[2022-09-30] MEDS: DOCUSATE SODIUM 100 MG CAPSULE (FP) PO SCH ×2 (10:40→21:09)
[2022-09-30] MEDS: PANTOPRAZOLE 40 MG TABLET PO SCH (10:40)
[2022-09-30] MEDS: HYDROCHLOROTHIAZIDE 25 MG TABLET (FP) PO SCH (10:41)
[2022-09-30] MEDS: THIAMINE HCL 100 MG TABLET (FP) PO SCH (21:08)
[2022-09-30] MEDS: MELATONIN 5 MG TABLETS PO SCH (21:08)
[2022-09-30] MEDS: traZODone HCL 100 MG TABLET (FP) PO SCH (21:09)
[2022-10-01] MEDS: DOCUSATE SODIUM 100 MG CAPSULE (FP) PO SCH ×2 (09:54→21:23)
[2022-10-01] MEDS: APIXABAN 5 MG TABLET PO SCH ×2 (09:54→21:23)
[2022-10-01] MEDS: PANTOPRAZOLE 40 MG TABLET PO SCH (09:54)
[2022-10-01] MEDS: HYDROCHLOROTHIAZIDE 25 MG TABLET (FP) PO SCH (09:54)
[2022-10-01] MEDS: amLODIPine BESYLATE 5 MG TABLET (FP) PO SCH (09:54)
[2022-10-01] MEDS: PRENATAL VITAMINS W/ FOLIC ACID TABLET (FP) PO SCH (09:54)
[2022-10-01] MEDS: traZODone HCL 100 MG TABLET (FP) PO SCH (21:23)
[2022-10-01] MEDS: THIAMINE HCL 100 MG TABLET (FP) PO SCH (21:23)
[2022-10-01] MEDS: MELATONIN 5 MG TABLETS PO SCH (21:23)
[2022-10-02] MEDS ORDERED: guaiFENesin 600 MG TABLET.ER (FP) PO PRN (10:30)
[2022-10-02] MEDS: PRENATAL VITAMINS W/ FOLIC ACID TABLET (FP) PO SCH (10:39)
[2022-10-02] MEDS: amLODIPine BESYLATE 5 MG TABLET (FP) PO SCH (10:40)
[2022-10-02] MEDS: APIXABAN 5 MG TABLET PO SCH ×2 (10:40→21:10)
[2022-10-02] MEDS: DOCUSATE SODIUM 100 MG CAPSULE (FP) PO SCH ×2 (10:40→21:10)
[2022-10-02] MEDS: PANTOPRAZOLE 40 MG TABLET PO SCH (10:40)
[2022-10-02] MEDS: HYDROCHLOROTHIAZIDE 25 MG TABLET (FP) PO SCH (10:40)
[2022-10-02] MEDS: THIAMINE HCL 100 MG TABLET (FP) PO SCH (21:09)
[2022-10-02] MEDS: MELATONIN 5 MG TABLETS PO SCH (21:09)
[2022-10-02] MEDS: traZODone HCL 100 MG TABLET (FP) PO SCH (21:10)
[2022-10-03] MEDS: SODIUM CHLORIDE NASAL SPRAY 44 ML BOTTLE NS PRN ×2 (06:28→15:36)
[2022-10-03] MEDS: DOCUSATE SODIUM 100 MG CAPSULE (FP) PO SCH ×2 (09:48→21:41)
[2022-10-03] MEDS: HYDROCHLOROTHIAZIDE 25 MG TABLET (FP) PO SCH (09:48)
[2022-10-03] MEDS: amLODIPine BESYLATE 5 MG TABLET (FP) PO SCH (09:48)
[2022-10-03] MEDS: APIXABAN 5 MG TABLET PO SCH ×2 (09:48→21:41)
[2022-10-03] MEDS: PRENATAL VITAMINS W/ FOLIC ACID TABLET (FP) PO SCH (09:48)
[2022-10-03] MEDS: PANTOPRAZOLE 40 MG TABLET PO SCH (09:48)
[2022-10-03] MEDS: traZODone HCL 100 MG TABLET (FP) PO SCH (21:41)
[2022-10-03] MEDS: MELATONIN 5 MG TABLETS PO SCH (21:41)
[2022-10-03] MEDS: THIAMINE HCL 100 MG TABLET (FP) PO SCH (21:41)
[2022-10-04] MEDS: PRENATAL VITAMINS W/ FOLIC ACID TABLET (FP) PO SCH (10:01)
[2022-10-04] MEDS: HYDROCHLOROTHIAZIDE 25 MG TABLET (FP) PO SCH (10:01)
[2022-10-04] MEDS: PANTOPRAZOLE 40 MG TABLET PO SCH (10:01)
[2022-10-04] MEDS: amLODIPine BESYLATE 5 MG TABLET (FP) PO SCH (10:01)
[2022-10-04] MEDS: DOCUSATE SODIUM 100 MG CAPSULE (FP) PO SCH ×2 (10:01→21:04)
[2022-10-04] MEDS: APIXABAN 5 MG TABLET PO SCH ×2 (10:01→21:04)
[2022-10-04] MEDS ORDERED: traZODone HCL 50 MG TABLET (FP) ONE (18:42)
[2022-10-04] MEDS: THIAMINE HCL 100 MG TABLET (FP) PO SCH (21:04)
[2022-10-04] MEDS: MELATONIN 5 MG TABLETS PO SCH (21:04)
[2022-10-04] MEDS: traZODone HCL 100 MG TABLET (FP) PO SCH (21:05)
[2022-10-05] MEDS: DOCUSATE SODIUM 100 MG CAPSULE (FP) PO SCH ×2 (09:41→21:51)
[2022-10-05] MEDS: PRENATAL VITAMINS W/ FOLIC ACID TABLET (FP) PO SCH (09:41)
[2022-10-05] MEDS: HYDROCHLOROTHIAZIDE 25 MG TABLET (FP) PO SCH (09:41)
[2022-10-05] MEDS: amLODIPine BESYLATE 5 MG TABLET (FP) PO SCH (09:42)
[2022-10-05] MEDS: APIXABAN 5 MG TABLET PO SCH ×2 (09:42→21:51)
[2022-10-05] MEDS: PANTOPRAZOLE 40 MG TABLET PO SCH (09:42)
[2022-10-05] MEDS: THIAMINE HCL 100 MG TABLET (FP) PO SCH (21:51)
[2022-10-05] MEDS: traZODone HCL 100 MG TABLET (FP) PO SCH (21:51)
[2022-10-05] MEDS: MELATONIN 5 MG TABLETS PO SCH (21:51)
[2022-10-06] MEDS: SODIUM CHLORIDE NASAL SPRAY 44 ML BOTTLE NS PRN (10:21)
[2022-10-06] MEDS: PANTOPRAZOLE 40 MG TABLET PO SCH (10:22)
[2022-10-06] MEDS: APIXABAN 5 MG TABLET PO SCH ×2 (10:22→22:03)
[2022-10-06] MEDS: HYDROCHLOROTHIAZIDE 25 MG TABLET (FP) PO SCH (10:22)
[2022-10-06] MEDS: amLODIPine BESYLATE 5 MG TABLET (FP) PO SCH (10:22)
[2022-10-06] MEDS: PRENATAL VITAMINS W/ FOLIC ACID TABLET (FP) PO SCH (10:22)
[2022-10-06] MEDS: DOCUSATE SODIUM 100 MG CAPSULE (FP) PO SCH ×2 (10:23→22:03)
[2022-10-06] MEDS: THIAMINE HCL 100 MG TABLET (FP) PO SCH (22:03)
[2022-10-06] MEDS: MELATONIN 5 MG TABLETS PO SCH (22:03)
[2022-10-06] MEDS ORDERED: traZODone HCL 50 MG TABLET (FP) ONE (22:04)
[2022-10-06] MEDS: traZODone HCL 100 MG TABLET (FP) PO SCH (22:04)
[2022-10-07 07:52] VITALS: RESP 18
[2022-10-07] MEDS: APIXABAN 5 MG TABLET PO SCH ×2 (09:43→21:25)
[2022-10-07] MEDS: DOCUSATE SODIUM 100 MG CAPSULE (FP) PO SCH ×2 (09:43→21:25)
[2022-10-07] MEDS: PANTOPRAZOLE 40 MG TABLET PO SCH (09:43)
[2022-10-07] MEDS: amLODIPine BESYLATE 5 MG TABLET (FP) PO SCH (09:43)
[2022-10-07] MEDS: PRENATAL VITAMINS W/ FOLIC ACID TABLET (FP) PO SCH (09:43)
[2022-10-07] MEDS: HYDROCHLOROTHIAZIDE 25 MG TABLET (FP) PO SCH (09:43)
[2022-10-07] MEDS ORDERED: traZODone HCL 50 MG TABLET (FP) ONE (19:25)
[2022-10-07] MEDS: THIAMINE HCL 100 MG TABLET (FP) PO SCH (21:25)
[2022-10-07] MEDS: MELATONIN 5 MG TABLETS PO SCH (21:25)
[2022-10-07] MEDS: traZODone HCL 100 MG TABLET (FP) PO SCH (21:26)
[2022-10-08] MEDS: HYDROCHLOROTHIAZIDE 25 MG TABLET (FP) PO SCH (10:03)
[2022-10-08] MEDS: amLODIPine BESYLATE 5 MG TABLET (FP) PO SCH (10:03)
[2022-10-08] MEDS: APIXABAN 5 MG TABLET PO SCH ×2 (10:03→21:05)
[2022-10-08] MEDS: DOCUSATE SODIUM 100 MG CAPSULE (FP) PO SCH ×2 (10:03→21:05)
[2022-10-08] MEDS: PRENATAL VITAMINS W/ FOLIC ACID TABLET (FP) PO SCH (10:03)
[2022-10-08] MEDS: PANTOPRAZOLE 40 MG TABLET PO SCH (10:03)
[2022-10-08] MEDS: SODIUM CHLORIDE NASAL SPRAY 44 ML BOTTLE NS PRN (17:09)
[2022-10-08] MEDS: MELATONIN 5 MG TABLETS PO SCH (21:05)
[2022-10-08] MEDS: traZODone HCL 100 MG TABLET (FP) PO SCH (21:05)
[2022-10-08] MEDS: THIAMINE HCL 100 MG TABLET (FP) PO SCH (21:06)
[2022-10-09] MEDS: APIXABAN 5 MG TABLET PO SCH ×2 (09:54→21:34)
[2022-10-09] MEDS: HYDROCHLOROTHIAZIDE 25 MG TABLET (FP) PO SCH (09:54)
[2022-10-09] MEDS: PANTOPRAZOLE 40 MG TABLET PO SCH (09:54)
[2022-10-09] MEDS: DOCUSATE SODIUM 100 MG CAPSULE (FP) PO SCH ×2 (09:54→21:34)
[2022-10-09] MEDS: PRENATAL VITAMINS W/ FOLIC ACID TABLET (FP) PO SCH (09:54)
[2022-10-09] MEDS: amLODIPine BESYLATE 5 MG TABLET (FP) PO SCH (10:40)
[2022-10-09] MEDS: SODIUM CHLORIDE NASAL SPRAY 44 ML BOTTLE NS PRN (17:06)
[2022-10-09] MEDS: THIAMINE HCL 100 MG TABLET (FP) PO SCH (21:34)
[2022-10-09] MEDS: MELATONIN 5 MG TABLETS PO SCH (21:34)
[2022-10-09] MEDS: traZODone HCL 100 MG TABLET (FP) PO SCH (21:34)
[2022-10-10] MEDS: PANTOPRAZOLE 40 MG TABLET PO SCH (10:25)
[2022-10-10] MEDS: DOCUSATE SODIUM 100 MG CAPSULE (FP) PO SCH ×2 (10:25→21:03)
[2022-10-10] MEDS: HYDROCHLOROTHIAZIDE 25 MG TABLET (FP) PO SCH (10:25)
[2022-10-10] MEDS: PRENATAL VITAMINS W/ FOLIC ACID TABLET (FP) PO SCH (10:25)
[2022-10-10] MEDS: amLODIPine BESYLATE 5 MG TABLET (FP) PO SCH (10:26)
[2022-10-10] MEDS: APIXABAN 5 MG TABLET PO SCH ×2 (10:26→21:03)
[2022-10-10] MEDS: traZODone HCL 100 MG TABLET (FP) PO SCH (21:03)
[2022-10-10] MEDS: MELATONIN 5 MG TABLETS PO SCH (21:03)
[2022-10-10] MEDS: THIAMINE HCL 100 MG TABLET (FP) PO SCH (21:03)
[2022-10-11 07:06] VITALS: BP 143/90; PULSE 65; TEMP 96.4
[2022-10-11] MEDS: PRENATAL VITAMINS W/ FOLIC ACID TABLET (FP) PO SCH (09:14)
[2022-10-11] MEDS: DOCUSATE SODIUM 100 MG CAPSULE (FP) PO SCH (09:14)
[2022-10-11] MEDS: APIXABAN 5 MG TABLET PO SCH (09:14)
[2022-10-11] MEDS: PANTOPRAZOLE 40 MG TABLET PO SCH (09:14)
[2022-10-11] MEDS: amLODIPine BESYLATE 5 MG TABLET (FP) PO SCH (09:14)
[2022-10-11] MEDS: HYDROCHLOROTHIAZIDE 25 MG TABLET (FP) PO SCH (09:14)
== END 2022-10-11 09:58 | disposition home or self-care (01) | DRG 895 ==
LOC: YASAS 12:30 → Y3W 12:32
PROVIDERS: ADMIT Allergy & Immunology; ATTEND Psychiatry & Neurology Pain Medicine
PROC: HZ42ZZZ Group Counseling for Substance Abuse Treatment, Cognitive-Behavioral (ICD-10-PCS; principal; 2022-09-27)
DX: F10.20 Alcohol dependence, uncomplicated (principal); F14.20 Cocaine dependence, uncomplicated; F19.282 Other psychoactive substance dependence with psychoactive substance-induced sleep disorder; F12.20 Cannabis dependence, uncomplicated; F17.210 Nicotine dependence, cigarettes, uncomplicated; G47.00 Insomnia, unspecified; I10 Essential (primary) hypertension; J30.2 Other seasonal allergic rhinitis; K21.9 Gastro-esophageal reflux disease without esophagitis; R79.89 Other specified abnormal findings of blood chemistry; Z86.718 Personal history of other venous thrombosis and embolism; Z79.01 Long term (current) use of anticoagulants
CPT/HCPCS: 36415; 82962; 86803

== ENCOUNTER 2023-03-25 18:39 | Inpatient (IN) | payer OTHER ==
[2023-03-25 20:33] VITALS: BMI 25.9
[2023-03-25] MEDS ORDERED: BISMUTH SUBSALICYLATE 524 MG/30 ML PO PRN (21:22)
[2023-03-25] MEDS ORDERED: LOPERAMIDE HCL 2 MG CAPSULE PO PRN (21:22)
[2023-03-25] MEDS ORDERED: BENZOCAINE/MENTHOL (CHLORASEPTIC ) LOZENGE MM PRN (21:22)
[2023-03-25] MEDS ORDERED: MAGNESIUM HYDROX 2400MG/30ML ORAL SUSPENSION 30 ML CUP PO PRN (21:22)
[2023-03-25] MEDS ORDERED: guaiFENesin 600 MG TABLET.ER (FP) PO PRN (21:22)
[2023-03-25] MEDS ORDERED: ONDANSETRON *ODT* 4 MG TABLET SL PRN (21:22)
[2023-03-25] MEDS ORDERED: DICYCLOMINE HCL 10 MG CAPSULE PO PRN (21:22)
[2023-03-25] MEDS ORDERED: NICOTINE POLACRILEX 2 MG GUM BUC PRN (21:22)
[2023-03-25] MEDS ORDERED: BENZONATATE 200 MG CAPSULE PO PRN (21:22)
[2023-03-25] MEDS ORDERED: ACETAMINOPHEN 325 MG TABLET (FP) PO PRN (21:22)
[2023-03-25] MEDS ORDERED: NALOXONE HCL 0.4 MG/ML VIAL IM PRN (21:22)
[2023-03-25] MEDS ORDERED: IBUPROFEN 400 MG TABLET (FP) PO PRN (21:22)
[2023-03-25] MEDS ORDERED: MAG HYDROX/AL HYDROX/SIMETH 30 ML UNIT-DOSE CUP PO PRN (21:22)
[2023-03-25] MEDS ORDERED: POLYETHYLENE GLYCOL (HEALTHYLAX) 3350 17 GM PACKET PO PRN (21:22)
[2023-03-25] MEDS ORDERED: IBUPROFEN 600 MG TABLET (FP) PO PRN (21:22)
[2023-03-25] MEDS ORDERED: NALOXONE HCL (KLOXXADO) 8 MG SPRAY NS PRN (21:22)
[2023-03-25] MEDS: MELATONIN 5 MG TABLETS PO SCH (22:32)
[2023-03-25] MEDS: THIAMINE HCL 100 MG TABLET (FP) PO SCH (22:33)
[2023-03-26] MEDS ORDERED: chlordiazePOXIDE HCL 25 MG CAPSULE PO PRN (09:48)
[2023-03-26] MEDS: NICOTINE 14 MG/24 HOURS TOPICAL PATCH TD SCH (10:20)
[2023-03-26] MEDS: hydrOXYzine PAMOATE 25 MG CAPSULE (FP) PO PRN (10:20)
[2023-03-26] MEDS: PRENATAL VITAMINS W/ FOLIC ACID TABLET (FP) PO SCH (10:20)
[2023-03-26] MEDS: chlordiazePOXIDE HCL 25 MG CAPSULE PO SCH ×3 (10:21→22:17)
[2023-03-26] MEDS: THIAMINE HCL 100 MG TABLET (FP) PO SCH (22:17)
[2023-03-26] MEDS: traZODone HCL 100 MG TABLET (FP) PO SCH (22:17)
[2023-03-26] MEDS: MELATONIN 5 MG TABLETS PO SCH (22:18)
[2023-03-27] MEDS: chlordiazePOXIDE HCL 25 MG CAPSULE PO SCH ×4 (05:21→22:25)
[2023-03-27] MEDS: NICOTINE 14 MG/24 HOURS TOPICAL PATCH TD SCH (10:17)
[2023-03-27] MEDS: hydrOXYzine PAMOATE 25 MG CAPSULE (FP) PO PRN (10:18)
[2023-03-27] MEDS: PRENATAL VITAMINS W/ FOLIC ACID TABLET (FP) PO SCH (10:18)
[2023-03-27 12:19] LABS: POTASSIUM 4.2 mmol/L (3.5-5.1)
[2023-03-27 12:33] LABS: ALBUMIN 3.2 g/dl (3.4-5.0); BLOOD UREA NITROGEN 36.8 mg/dL (7-18); CALCIUM 8.3 mg/dL (8.5-10.1)
[2023-03-27 12:36] LABS: CREATININE 2.7 mg/dL (0.55-1.3)
[2023-03-27 12:38] LABS: BILIRUBIN,TOTAL 0.6 mg/dL (0.2-1); TOT PROT 6.4 g/dl (6.4-8.2)
[2023-03-27 13:18] LABS: HEMATOCRIT 36.7 % (35.4-49); HEMOGLOBIN 11.7 GM/dL (11.7-16.9); MCH 23.8 pg (25.7-33.7); MCHC 31.9 g/dl (32.0-35.9); MEAN CELL VOLUME 74.7 fl (80-96); MEAN PLT VOLUME 9.7 fl (7.5-11.1); PLATELET COUNT 139 10^3/uL (134-434); RBC 4.91 M/mm3 (4.00-5.60); RDW 20.7 % (11.9-15.9); WHITE BLOOD COUNT 3.5 K/mm3 (4.0-10.0)
[2023-03-27] MEDS ORDERED: DOCUSATE SODIUM 100 MG CAPSULE (FP) PO PRN (15:36)
[2023-03-27] MEDS: PANTOPRAZOLE 40 MG TABLET PO SCH (17:18)
[2023-03-27] MEDS: APIXABAN 5 MG TABLET PO SCH (22:24)
[2023-03-27] MEDS: THIAMINE HCL 100 MG TABLET (FP) PO SCH (22:24)
[2023-03-27] MEDS: traZODone HCL 100 MG TABLET (FP) PO SCH (22:24)
[2023-03-27] MEDS: MELATONIN 5 MG TABLETS PO SCH (22:24)
[2023-03-28] MEDS: chlordiazePOXIDE HCL 25 MG CAPSULE PO SCH ×4 (05:26→22:28)
[2023-03-28] MEDS: PANTOPRAZOLE 40 MG TABLET PO SCH (10:11)
[2023-03-28] MEDS: PRENATAL VITAMINS W/ FOLIC ACID TABLET (FP) PO SCH (10:11)
[2023-03-28] MEDS: APIXABAN 5 MG TABLET PO SCH ×2 (10:11→22:29)
[2023-03-28] MEDS: NICOTINE 14 MG/24 HOURS TOPICAL PATCH TD SCH (10:13)
[2023-03-28] MEDS: traZODone HCL 100 MG TABLET (FP) PO SCH (22:28)
[2023-03-28] MEDS: THIAMINE HCL 100 MG TABLET (FP) PO SCH (22:29)
[2023-03-28] MEDS: MELATONIN 5 MG TABLETS PO SCH (22:29)
[2023-03-29] MEDS ORDERED: chlordiazePOXIDE HCL 10 MG CAPSULE PO PRN
[2023-03-29] MEDS: chlordiazePOXIDE HCL 10 MG CAPSULE PO SCH ×4 (05:39→22:11)
[2023-03-29] MEDS: PANTOPRAZOLE 40 MG TABLET PO SCH (10:17)
[2023-03-29] MEDS: APIXABAN 5 MG TABLET PO SCH ×2 (10:17→22:11)
[2023-03-29] MEDS: PRENATAL VITAMINS W/ FOLIC ACID TABLET (FP) PO SCH (10:17)
[2023-03-29] MEDS: NICOTINE 14 MG/24 HOURS TOPICAL PATCH TD SCH (10:18)
[2023-03-29 10:54] LABS: BLOOD UREA NITROGEN 34.7 mg/dL (7-18)
[2023-03-29 10:58] LABS: CREATININE 2.8 mg/dL (0.55-1.3)
[2023-03-29] MEDS: THIAMINE HCL 100 MG TABLET (FP) PO SCH (22:11)
[2023-03-29] MEDS: traZODone HCL 100 MG TABLET (FP) PO SCH (22:11)
[2023-03-29] MEDS: MELATONIN 5 MG TABLETS PO SCH (22:13)
[2023-03-30] MEDS: chlordiazePOXIDE HCL 10 MG CAPSULE PO SCH ×2 (05:42→17:41)
[2023-03-30] MEDS: APIXABAN 5 MG TABLET PO SCH ×2 (09:40→22:32)
[2023-03-30] MEDS: PANTOPRAZOLE 40 MG TABLET PO SCH ×2 (09:40→10:09)
[2023-03-30] MEDS: NICOTINE 14 MG/24 HOURS TOPICAL PATCH TD SCH (09:40)
[2023-03-30] MEDS: PRENATAL VITAMINS W/ FOLIC ACID TABLET (FP) PO SCH (09:40)
[2023-03-30] MEDS ORDERED: amLODIPine BESYLATE 5 MG TABLET (FP) PO SCH (10:00)
[2023-03-30] MEDS: HYDROCHLOROTHIAZIDE 25 MG TABLET (FP) PO SCH (10:09)
[2023-03-30] MEDS: NIFEdipine E.R. 30 MG TABLET PO SCH (10:09)
[2023-03-30] MEDS: THIAMINE HCL 100 MG TABLET (FP) PO SCH (22:32)
[2023-03-30] MEDS: traZODone HCL 100 MG TABLET (FP) PO SCH (22:32)
[2023-03-30] MEDS: MELATONIN 5 MG TABLETS PO SCH (22:33)
[2023-03-31] MEDS ORDERED: chlordiazePOXIDE HCL 10 MG CAPSULE PO ONE (05:00)
[2023-03-31 05:55] VITALS: RESP 16
[2023-03-31 08:37] VITALS: BP 158/93; PULSE 65; TEMP 98.3
[2023-03-31] MEDS: NIFEdipine E.R. 30 MG TABLET PO SCH (10:05)
[2023-03-31] MEDS: PRENATAL VITAMINS W/ FOLIC ACID TABLET (FP) PO SCH (10:05)
[2023-03-31] MEDS: PANTOPRAZOLE 40 MG TABLET PO SCH ×2 (10:05→10:06)
[2023-03-31] MEDS: APIXABAN 5 MG TABLET PO SCH (10:05)
[2023-03-31] MEDS: HYDROCHLOROTHIAZIDE 25 MG TABLET (FP) PO SCH (10:06)
[2023-03-31] MEDS: NICOTINE 14 MG/24 HOURS TOPICAL PATCH TD SCH (10:06)
[2023-03-31 12:41] LABS: CREATININE 3.2 mg/dL (0.55-1.3)
== END 2023-03-31 11:35 | disposition other institution (70) | DRG 897 ==
LOC: YASAS 18:39 → Y6N 21:38
PROVIDERS: ADMIT Allergy & Immunology; ATTEND Surgery
PROC: HZ2ZZZZ Detoxification Services for Substance Abuse Treatment (ICD-10-PCS; principal; 2023-03-25)
DX: F10.230 Alcohol dependence with withdrawal, uncomplicated (principal); Z59.00 Homelessness unspecified; F12.20 Cannabis dependence, uncomplicated; F17.210 Nicotine dependence, cigarettes, uncomplicated; F10.282 Alcohol dependence with alcohol-induced sleep disorder; K21.9 Gastro-esophageal reflux disease without esophagitis; I12.9 Hypertensive chronic kidney disease with stage 1 through stage 4 chronic kidney disease, or unspecified chronic kidney disease; N18.9 Chronic kidney disease, unspecified; Z86.718 Personal history of other venous thrombosis and embolism; Z79.01 Long term (current) use of anticoagulants
CPT/HCPCS: 36415; 80053; 80307; 82565; 84520; 85027; 86780; 87635

== ENCOUNTER 2023-03-31 11:38 | Inpatient (IN) | payer OTHER ==
[2023-03-31] MEDS ORDERED: guaiFENesin 600 MG TABLET.ER (FP) PO PRN (15:22)
[2023-03-31] MEDS ORDERED: NALOXONE HCL (KLOXXADO) 8 MG SPRAY NS PRN (15:22)
[2023-03-31] MEDS ORDERED: BENZOCAINE/MENTHOL (CHLORASEPTIC ) LOZENGE MM PRN (15:22)
[2023-03-31] MEDS ORDERED: NICOTINE POLACRILEX 4 MG GUM BUC PRN (15:22)
[2023-03-31] MEDS ORDERED: BENZONATATE 200 MG CAPSULE PO PRN (15:22)
[2023-03-31] MEDS ORDERED: AMMONIUM LACTATE 12% LOTION 225 GM BOTTLE TP PRN (15:22)
[2023-03-31] MEDS ORDERED: hydrOXYzine PAMOATE 25 MG CAPSULE (FP) PO PRN (15:22)
[2023-03-31] MEDS ORDERED: ACETAMINOPHEN 325 MG TABLET (FP) PO PRN (15:22)
[2023-03-31] MEDS ORDERED: LOPERAMIDE HCL 2 MG CAPSULE PO PRN (15:22)
[2023-03-31] MEDS ORDERED: NICOTINE 14 MG/24 HOURS TOPICAL PATCH TD PRN (15:22)
[2023-03-31] MEDS ORDERED: NALOXONE HCL 0.4 MG/ML VIAL IVPUSH PRN (15:22)
[2023-03-31] MEDS ORDERED: POLYETHYLENE GLYCOL (HEALTHYLAX) 3350 17 GM PACKET PO PRN (15:22)
[2023-03-31] MEDS ORDERED: BACLOFEN 10 MG TABLET (FP) PO PRN (15:22)
[2023-03-31] MEDS ORDERED: COLLOIDAL OATMEAL 1 BAR EACH TP PRN (15:22)
[2023-03-31] MEDS ORDERED: DOCUSATE SODIUM 100 MG CAPSULE (FP) PO PRN (15:24)
[2023-03-31] MEDS: APIXABAN 5 MG TABLET PO SCH (21:19)
[2023-03-31] MEDS: THIAMINE HCL 100 MG TABLET (FP) PO SCH (21:19)
[2023-03-31] MEDS: MELATONIN 5 MG TABLETS PO SCH (21:19)
[2023-03-31] MEDS ORDERED: traZODone HCL 100 MG TABLET (FP) PO SCH ×2 (22:00)
[2023-04-01] MEDS: NIFEdipine E.R. 30 MG TABLET PO SCH (10:15)
[2023-04-01] MEDS: HYDROCHLOROTHIAZIDE 25 MG TABLET (FP) PO SCH (10:15)
[2023-04-01] MEDS: PRENATAL VITAMINS W/ FOLIC ACID TABLET (FP) PO SCH (10:15)
[2023-04-01] MEDS: APIXABAN 5 MG TABLET PO SCH ×2 (10:15→21:15)
[2023-04-01] MEDS: PANTOPRAZOLE 40 MG TABLET PO SCH (10:15)
[2023-04-01] MEDS: THIAMINE HCL 100 MG TABLET (FP) PO SCH (21:15)
[2023-04-01] MEDS: MELATONIN 5 MG TABLETS PO SCH (21:15)
[2023-04-02] MEDS: APIXABAN 5 MG TABLET PO SCH ×2 (09:51→21:23)
[2023-04-02] MEDS: PRENATAL VITAMINS W/ FOLIC ACID TABLET (FP) PO SCH (09:51)
[2023-04-02] MEDS: PANTOPRAZOLE 40 MG TABLET PO SCH (09:51)
[2023-04-02] MEDS: HYDROCHLOROTHIAZIDE 25 MG TABLET (FP) PO SCH (11:00)
[2023-04-02] MEDS: NIFEdipine E.R. 30 MG TABLET PO SCH (11:00)
[2023-04-02] MEDS: LACTULOSE 20 GM/30 ML UDC (FOR ORAL USE ONLY) PO SCH ×2 (13:31→21:23)
[2023-04-02] MEDS: THIAMINE HCL 100 MG TABLET (FP) PO SCH (21:23)
[2023-04-02] MEDS: MELATONIN 5 MG TABLETS PO SCH (21:23)
[2023-04-03] MEDS: LACTULOSE 20 GM/30 ML UDC (FOR ORAL USE ONLY) PO SCH ×3 (06:44→21:10)
[2023-04-03] MEDS: APIXABAN 5 MG TABLET PO SCH ×2 (09:26→21:10)
[2023-04-03] MEDS: NIFEdipine E.R. 30 MG TABLET PO SCH (09:26)
[2023-04-03] MEDS: PANTOPRAZOLE 40 MG TABLET PO SCH (09:26)
[2023-04-03] MEDS: PRENATAL VITAMINS W/ FOLIC ACID TABLET (FP) PO SCH (09:26)
[2023-04-03] MEDS: HYDROCHLOROTHIAZIDE 25 MG TABLET (FP) PO SCH (09:27)
[2023-04-03 10:41] LABS: INR 1.19 (0.83-1.09); PROTHROMBIN TIME (PATIENT) 13.8 SEC (9.7-13.0)
[2023-04-03] MEDS: THIAMINE HCL 100 MG TABLET (FP) PO SCH (21:10)
[2023-04-03] MEDS: MELATONIN 5 MG TABLETS PO SCH (21:10)
[2023-04-03] MEDS: traZODone HCL 100 MG TABLET (FP) PO SCH (21:10)
[2023-04-04] MEDS: LACTULOSE 20 GM/30 ML UDC (FOR ORAL USE ONLY) PO SCH ×3 (06:30→21:04)
[2023-04-04] MEDS: APIXABAN 5 MG TABLET PO SCH ×2 (09:21→21:04)
[2023-04-04] MEDS: PANTOPRAZOLE 40 MG TABLET PO SCH (09:21)
[2023-04-04] MEDS: PRENATAL VITAMINS W/ FOLIC ACID TABLET (FP) PO SCH (09:21)
[2023-04-04] MEDS: HYDROCHLOROTHIAZIDE 25 MG TABLET (FP) PO SCH (09:21)
[2023-04-04] MEDS: NIFEdipine E.R. 30 MG TABLET PO SCH (09:21)
[2023-04-04] MEDS: MELATONIN 5 MG TABLETS PO SCH (21:04)
[2023-04-04] MEDS: THIAMINE HCL 100 MG TABLET (FP) PO SCH (21:04)
[2023-04-04] MEDS: traZODone HCL 100 MG TABLET (FP) PO SCH (21:05)
[2023-04-05] MEDS: LACTULOSE 20 GM/30 ML UDC (FOR ORAL USE ONLY) PO SCH ×3 (06:21→21:10)
[2023-04-05] MEDS: PANTOPRAZOLE 40 MG TABLET PO SCH (09:09)
[2023-04-05] MEDS: PRENATAL VITAMINS W/ FOLIC ACID TABLET (FP) PO SCH (09:09)
[2023-04-05] MEDS: APIXABAN 5 MG TABLET PO SCH ×2 (09:09→21:10)
[2023-04-05] MEDS: HYDROCHLOROTHIAZIDE 25 MG TABLET (FP) PO SCH (09:09)
[2023-04-05] MEDS: NIFEdipine E.R. 30 MG TABLET PO SCH (09:09)
[2023-04-05] MEDS: THIAMINE HCL 100 MG TABLET (FP) PO SCH (21:10)
[2023-04-05] MEDS: traZODone HCL 100 MG TABLET (FP) PO SCH (21:10)
[2023-04-05] MEDS: MELATONIN 5 MG TABLETS PO SCH (21:10)
[2023-04-06] MEDS: LACTULOSE 20 GM/30 ML UDC (FOR ORAL USE ONLY) PO SCH ×3 (06:32→21:18)
[2023-04-06] MEDS: PANTOPRAZOLE 40 MG TABLET PO SCH (09:32)
[2023-04-06] MEDS: APIXABAN 5 MG TABLET PO SCH ×2 (09:32→21:18)
[2023-04-06] MEDS: NIFEdipine E.R. 30 MG TABLET PO SCH (09:32)
[2023-04-06] MEDS: HYDROCHLOROTHIAZIDE 25 MG TABLET (FP) PO SCH (09:32)
[2023-04-06] MEDS: PRENATAL VITAMINS W/ FOLIC ACID TABLET (FP) PO SCH (09:33)
[2023-04-06] MEDS: THIAMINE HCL 100 MG TABLET (FP) PO SCH (21:18)
[2023-04-06] MEDS: MELATONIN 5 MG TABLETS PO SCH (21:18)
[2023-04-06] MEDS: traZODone HCL 100 MG TABLET (FP) PO SCH (21:18)
[2023-04-07] MEDS: LACTULOSE 20 GM/30 ML UDC (FOR ORAL USE ONLY) PO SCH ×3 (06:32→21:24)
[2023-04-07] MEDS: HYDROCHLOROTHIAZIDE 25 MG TABLET (FP) PO SCH (09:29)
[2023-04-07] MEDS: PANTOPRAZOLE 40 MG TABLET PO SCH (09:29)
[2023-04-07] MEDS: NIFEdipine E.R. 30 MG TABLET PO SCH (09:29)
[2023-04-07] MEDS: APIXABAN 5 MG TABLET PO SCH ×2 (09:29→21:23)
[2023-04-07] MEDS: PRENATAL VITAMINS W/ FOLIC ACID TABLET (FP) PO SCH (09:30)
[2023-04-07] MEDS: traZODone HCL 100 MG TABLET (FP) PO SCH (21:23)
[2023-04-07] MEDS: THIAMINE HCL 100 MG TABLET (FP) PO SCH (21:23)
[2023-04-07] MEDS: MELATONIN 5 MG TABLETS PO SCH (21:24)
[2023-04-08] MEDS: LACTULOSE 20 GM/30 ML UDC (FOR ORAL USE ONLY) PO SCH ×3 (06:30→21:29)
[2023-04-08] MEDS: HYDROCHLOROTHIAZIDE 25 MG TABLET (FP) PO SCH (10:01)
[2023-04-08] MEDS: PRENATAL VITAMINS W/ FOLIC ACID TABLET (FP) PO SCH (10:01)
[2023-04-08] MEDS: PANTOPRAZOLE 40 MG TABLET PO SCH (10:01)
[2023-04-08] MEDS: APIXABAN 5 MG TABLET PO SCH ×2 (10:01→21:29)
[2023-04-08] MEDS: NIFEdipine E.R. 30 MG TABLET PO SCH (10:02)
[2023-04-08] MEDS: THIAMINE HCL 100 MG TABLET (FP) PO SCH (21:28)
[2023-04-08] MEDS: traZODone HCL 100 MG TABLET (FP) PO SCH (21:28)
[2023-04-08] MEDS: MELATONIN 5 MG TABLETS PO SCH (21:28)
[2023-04-09] MEDS: LACTULOSE 20 GM/30 ML UDC (FOR ORAL USE ONLY) PO SCH ×3 (06:07→21:17)
[2023-04-09] MEDS: NIFEdipine E.R. 30 MG TABLET PO SCH (09:52)
[2023-04-09] MEDS: APIXABAN 5 MG TABLET PO SCH ×2 (09:52→21:17)
[2023-04-09] MEDS: PRENATAL VITAMINS W/ FOLIC ACID TABLET (FP) PO SCH (09:52)
[2023-04-09] MEDS: HYDROCHLOROTHIAZIDE 25 MG TABLET (FP) PO SCH (09:52)
[2023-04-09] MEDS: PANTOPRAZOLE 40 MG TABLET PO SCH (09:53)
[2023-04-09] MEDS: THIAMINE HCL 100 MG TABLET (FP) PO SCH (21:16)
[2023-04-09] MEDS: MELATONIN 5 MG TABLETS PO SCH (21:17)
[2023-04-09] MEDS: traZODone HCL 100 MG TABLET (FP) PO SCH (21:17)
[2023-04-10] MEDS: LACTULOSE 20 GM/30 ML UDC (FOR ORAL USE ONLY) PO SCH ×3 (06:11→21:12)
[2023-04-10] MEDS: PANTOPRAZOLE 40 MG TABLET PO SCH (10:26)
[2023-04-10] MEDS: APIXABAN 5 MG TABLET PO SCH ×2 (10:26→21:12)
[2023-04-10] MEDS: NIFEdipine E.R. 30 MG TABLET PO SCH (10:26)
[2023-04-10] MEDS: PRENATAL VITAMINS W/ FOLIC ACID TABLET (FP) PO SCH (10:27)
[2023-04-10] MEDS: HYDROCHLOROTHIAZIDE 25 MG TABLET (FP) PO SCH (10:27)
[2023-04-10] MEDS: traZODone HCL 100 MG TABLET (FP) PO SCH (21:12)
[2023-04-10] MEDS: THIAMINE HCL 100 MG TABLET (FP) PO SCH (21:12)
[2023-04-10] MEDS: MELATONIN 5 MG TABLETS PO SCH (21:12)
[2023-04-11] MEDS: LACTULOSE 20 GM/30 ML UDC (FOR ORAL USE ONLY) PO SCH ×3 (06:57→21:11)
[2023-04-11] MEDS: PANTOPRAZOLE 40 MG TABLET PO SCH (09:46)
[2023-04-11] MEDS: APIXABAN 5 MG TABLET PO SCH ×2 (09:46→21:11)
[2023-04-11] MEDS: PRENATAL VITAMINS W/ FOLIC ACID TABLET (FP) PO SCH (09:46)
[2023-04-11] MEDS: HYDROCHLOROTHIAZIDE 25 MG TABLET (FP) PO SCH (09:46)
[2023-04-11] MEDS: NIFEdipine E.R. 30 MG TABLET PO SCH (09:47)
[2023-04-11] MEDS: traZODone HCL 100 MG TABLET (FP) PO SCH (21:10)
[2023-04-11] MEDS: THIAMINE HCL 100 MG TABLET (FP) PO SCH (21:10)
[2023-04-11] MEDS: MELATONIN 5 MG TABLETS PO SCH (21:11)
[2023-04-12] MEDS: LACTULOSE 20 GM/30 ML UDC (FOR ORAL USE ONLY) PO SCH ×3 (07:00→21:05)
[2023-04-12] MEDS: NIFEdipine E.R. 30 MG TABLET PO SCH (09:29)
[2023-04-12] MEDS: APIXABAN 5 MG TABLET PO SCH ×2 (09:29→21:05)
[2023-04-12] MEDS: PRENATAL VITAMINS W/ FOLIC ACID TABLET (FP) PO SCH (09:30)
[2023-04-12] MEDS: PANTOPRAZOLE 40 MG TABLET PO SCH (09:30)
[2023-04-12] MEDS: HYDROCHLOROTHIAZIDE 25 MG TABLET (FP) PO SCH (09:30)
[2023-04-12] MEDS: MELATONIN 5 MG TABLETS PO SCH (21:05)
[2023-04-12] MEDS: traZODone HCL 100 MG TABLET (FP) PO SCH (21:05)
[2023-04-12] MEDS: THIAMINE HCL 100 MG TABLET (FP) PO SCH (21:05)
[2023-04-13] MEDS: LACTULOSE 20 GM/30 ML UDC (FOR ORAL USE ONLY) PO SCH ×3 (06:35→21:12)
[2023-04-13 07:16] VITALS: RESP 18; TEMP 98
[2023-04-13] MEDS: PRENATAL VITAMINS W/ FOLIC ACID TABLET (FP) PO SCH (10:10)
[2023-04-13] MEDS: PANTOPRAZOLE 40 MG TABLET PO SCH (10:11)
[2023-04-13] MEDS: HYDROCHLOROTHIAZIDE 25 MG TABLET (FP) PO SCH (10:11)
[2023-04-13] MEDS: APIXABAN 5 MG TABLET PO SCH ×2 (10:11→21:12)
[2023-04-13] MEDS: NIFEdipine E.R. 30 MG TABLET PO SCH (10:11)
[2023-04-13] MEDS: traZODone HCL 100 MG TABLET (FP) PO SCH (21:12)
[2023-04-13] MEDS: THIAMINE HCL 100 MG TABLET (FP) PO SCH (21:12)
[2023-04-13] MEDS: MELATONIN 5 MG TABLETS PO SCH (21:12)
[2023-04-14] MEDS: LACTULOSE 20 GM/30 ML UDC (FOR ORAL USE ONLY) PO SCH (06:48)
[2023-04-14 07:26] VITALS: BP 124/72; PULSE 62
[2023-04-14] MEDS: NIFEdipine E.R. 30 MG TABLET PO SCH (09:03)
[2023-04-14] MEDS: PANTOPRAZOLE 40 MG TABLET PO SCH (09:03)
[2023-04-14] MEDS: APIXABAN 5 MG TABLET PO SCH (09:03)
[2023-04-14] MEDS: PRENATAL VITAMINS W/ FOLIC ACID TABLET (FP) PO SCH (09:03)
[2023-04-14] MEDS: HYDROCHLOROTHIAZIDE 25 MG TABLET (FP) PO SCH (09:03)
== END 2023-04-14 09:20 | disposition home or self-care (01) | DRG 895 ==
LOC: YASAS 11:38 → Y3E 11:39
PROVIDERS: ADMIT Allergy & Immunology; ATTEND Psychiatry & Neurology Pain Medicine
PROC: HZ42ZZZ Group Counseling for Substance Abuse Treatment, Cognitive-Behavioral (ICD-10-PCS; principal; 2023-03-31)
DX: F10.20 Alcohol dependence, uncomplicated (principal); F14.20 Cocaine dependence, uncomplicated; E72.20 Disorder of urea cycle metabolism, unspecified; Z59.00 Homelessness unspecified; F17.210 Nicotine dependence, cigarettes, uncomplicated; F32.9 Major depressive disorder, single episode, unspecified; I10 Essential (primary) hypertension; G47.00 Insomnia, unspecified; K21.9 Gastro-esophageal reflux disease without esophagitis; Z86.718 Personal history of other venous thrombosis and embolism; Z79.01 Long term (current) use of anticoagulants
CPT/HCPCS: 36415; 82140; 82652; 83735; 85610; 86803; 87635

== ENCOUNTER 2023-11-26 12:14 | Inpatient (IN) | payer OTHER ==
[2023-11-26 13:27] VITALS: BMI 24.3
[2023-11-26] MEDS ORDERED: hydrOXYzine PAMOATE 25 MG CAPSULE (FP) PO PRN (14:28)
[2023-11-26] MEDS ORDERED: IBUPROFEN 600 MG TABLET (FP) PO PRN (14:28)
[2023-11-26] MEDS ORDERED: MAG HYDROX/AL HYDROX/SIMETH 30 ML UNIT-DOSE CUP PO PRN (14:28)
[2023-11-26] MEDS ORDERED: DICYCLOMINE HCL 10 MG CAPSULE PO PRN (14:28)
[2023-11-26] MEDS ORDERED: IBUPROFEN 400 MG TABLET (FP) PO PRN (14:28)
[2023-11-26] MEDS ORDERED: chlordiazePOXIDE HCL 25 MG CAPSULE PO PRN (14:28)
[2023-11-26] MEDS ORDERED: BENZOCAINE/MENTHOL (CHLORASEPTIC ) LOZENGE MM PRN (14:28)
[2023-11-26] MEDS ORDERED: METHOCARBAMOL 500 MG TABLET PO PRN (14:28)
[2023-11-26] MEDS ORDERED: NALOXONE HCL 0.4 MG/ML VIAL IM PRN (14:28)
[2023-11-26] MEDS ORDERED: NICOTINE POLACRILEX 2 MG GUM BUC PRN (14:28)
[2023-11-26] MEDS ORDERED: NALOXONE (NARCAN) HCL 4 MG/0.1 ML SPRAY NS PRN (14:28)
[2023-11-26] MEDS ORDERED: guaiFENesin 600 MG TABLET.ER (FP) PO PRN (14:28)
[2023-11-26] MEDS ORDERED: BENZONATATE 200 MG CAPSULE PO PRN (14:28)
[2023-11-26] MEDS ORDERED: POLYETHYLENE GLYCOL (HEALTHYLAX) 3350 17 GM PACKET PO PRN (14:28)
[2023-11-26] MEDS ORDERED: MAGNESIUM HYDROX 2400MG/30ML ORAL SUSPENSION 30 ML CUP PO PRN (14:28)
[2023-11-26] MEDS ORDERED: BISMUTH SUBSALICYLATE 262 MG/15 ML BTL PO PRN (14:28)
[2023-11-26] MEDS ORDERED: PRENATAL VITAMINS W/ FOLIC ACID TABLET (FP) PO ONE (16:28)
[2023-11-26] MEDS: PRENATAL VITAMINS W/ FOLIC ACID TABLET (FP) PO SCH (16:42)
[2023-11-26] MEDS: chlordiazePOXIDE HCL 25 MG CAPSULE PO SCH (17:33)
[2023-11-26] MEDS: THIAMINE 100 MG TABLET PO SCH (22:48)
[2023-11-26] MEDS: MELATONIN 5 MG TABLETS PO SCH (22:54)
[2023-11-27] MEDS ORDERED: DOCUSATE SODIUM 100 MG CAPSULE (FP) PO PRN (07:04)
[2023-11-27] MEDS: HYDROCHLOROTHIAZIDE 25 MG TABLET (FP) PO SCH (10:10)
[2023-11-27] MEDS: APIXABAN 5 MG TABLET PO SCH (10:10)
[2023-11-27] MEDS: PANTOPRAZOLE 40 MG TABLET PO SCH (10:10)
[2023-11-27] MEDS: NIFEdipine E.R. 30 MG TABLET PO SCH (10:10)
[2023-11-27 11:53] LABS: HEMATOCRIT 35.6 % (35.4-49); HEMOGLOBIN 11.4 GM/dL (11.7-16.9); MCH 23.9 pg (25.7-33.7); MCHC 31.9 g/dl (32.0-35.9); MEAN CELL VOLUME 74.7 fl (80-96); MEAN PLT VOLUME 10.1 fl (7.5-11.1); PLATELET COUNT 176 10^3/uL (134-434); RBC 4.76 M/mm3 (4.00-5.60); RDW 19.6 % (11.9-15.9); WHITE BLOOD COUNT 4.5 K/mm3 (4.0-10.0)
[2023-11-27 11:58] LABS: POTASSIUM 4.8 mmol/L (3.5-5.1)
[2023-11-27 12:04] LABS: CALCIUM 8.7 mg/dL (8.5-10.1)
[2023-11-27 12:06] LABS: ALBUMIN 3.2 g/dl (3.4-5.0); BLOOD UREA NITROGEN 47.9 mg/dL (7-18)
[2023-11-27 12:09] LABS: BILIRUBIN,TOTAL 0.5 mg/dL (0.2-1); CREATININE 3.4 mg/dL (0.55-1.3); TOT PROT 7.4 g/dl (6.4-8.2)
[2023-11-27] MEDS: LACTULOSE 20 GM/30 ML UDC (FOR ORAL USE ONLY) PO SCH (13:02)
[2023-11-27] MEDS: traZODone HCL 100 MG TABLET (FP) PO SCH (22:43)
[2023-11-28] MEDS: chlordiazePOXIDE HCL 25 MG CAPSULE PO SCH (05:54)
[2023-11-28 13:35] LABS: CREATININE 3.7 mg/dL (0.55-1.3)
[2023-11-29] MEDS ORDERED: chlordiazePOXIDE HCL 10 MG CAPSULE PO PRN
[2023-11-29] MEDS: chlordiazePOXIDE HCL 10 MG CAPSULE PO SCH (05:41)
[2023-11-30] MEDS: chlordiazePOXIDE HCL 10 MG CAPSULE PO SCH (05:50)
[2023-11-30 17:27] LABS: CREATININE 3.9 mg/dL (0.55-1.3)
[2023-11-30] MEDS: ONDANSETRON *ODT* 4 MG TABLET SL PRN (17:55)
[2023-11-30] MEDS: LOPERAMIDE HCL 2 MG CAPSULE PO PRN (20:36)
[2023-11-30] MEDS: ACETAMINOPHEN 325 MG TABLET (FP) PO PRN (20:44)
[2023-12-01] MEDS ORDERED: chlordiazePOXIDE HCL 10 MG CAPSULE PO ONE (05:00)
[2023-12-01 09:05] VITALS: BP 127/73; PULSE 84; RESP 18; TEMP 99.1
== END 2023-12-01 17:48 | disposition short-term general hospital (02) | DRG 897 ==
LOC: YASAS 12:14 → Y6N 14:37
PROVIDERS: ADMIT Allergy & Immunology; ATTEND Surgery
PROC: HZ2ZZZZ Detoxification Services for Substance Abuse Treatment (ICD-10-PCS; principal; 2023-11-26)
DX: F10.230 Alcohol dependence with withdrawal, uncomplicated (principal); F14.20 Cocaine dependence, uncomplicated; F19.282 Other psychoactive substance dependence with psychoactive substance-induced sleep disorder; N17.9 Acute kidney failure, unspecified; F17.210 Nicotine dependence, cigarettes, uncomplicated; I10 Essential (primary) hypertension; K21.9 Gastro-esophageal reflux disease without esophagitis; Z86.711 Personal history of pulmonary embolism; Z86.718 Personal history of other venous thrombosis and embolism; Z79.01 Long term (current) use of anticoagulants; Z99.89 Dependence on other enabling machines and devices
CPT/HCPCS: 0241U-QW; 36415; 80053; 80305; 80307; 82565; 84520; 85027; 86780; 93005; 93010; Q0162

== ENCOUNTER 2023-12-01 10:40 | Inpatient (IN) | payer OTHER ==
[2023-12-01] MEDS ORDERED: ACETAMINOPHEN INJECTION 100 ML IVPB ONE (12:03)
[2023-12-01] MEDS ORDERED: FAMOTIDINE 20 MG/50 ML IVPB 20 MG/50 ML MG IVPB ONE (12:03)
[2023-12-01] MEDS ORDERED: ONDANSETRON 4 MG/2 ML VIAL ONE (12:03)
[2023-12-01] MEDS: SODIUM CHLORIDE 1,000 ML IV STA (12:41)
[2023-12-01] MEDS: ONDANSETRON 4 MG/2 ML VIAL IVPUSH ONE (12:41)
[2023-12-01] MEDS: ACETAMINOPHEN 1000 MG/100 ML BAG IVPB ONE (12:42)
[2023-12-01 12:54] LABS: BASO % 0.8 % (0-2.0); EOS % 0.4 % (0-4.5); HEMATOCRIT 35.7 % (35.4-49); HEMOGLOBIN 11.3 GM/dL (11.7-16.9); LYMPH % 8.7 % (8-40); MCH 23.5 pg (25.7-33.7); MCHC 31.5 g/dl (32.0-35.9); MEAN CELL VOLUME 74.5 fl (80-96); NEUT % 84.1 % (42.8-82.8); PLATELET COUNT 158 10^3/uL (134-434); RDW 20.6 % (11.9-15.9); WHITE BLOOD COUNT 13.8 K/mm3 (4.0-10.0)
[2023-12-01 12:55] LABS: EPI CELLS 3 /uL (0-25.1); HYALINE CASTS 0 /uL (0-3.1); PH,URINE 7.5 (5.0-8.0); URINE APPEARANCE CLEAR; URINE BACTERIA 6 /uL (0-1359); URINE BILIRUBIN NEGATIVE (NEGATIVE); URINE COLOR YELLOW; URINE GLUCOSE (UA) NEGATIVE (NEGATIVE); URINE KETONE NEGATIVE (NEGATIVE); URINE LEUK ESTERASE TRACE (NEGATIVE); URINE NITRITE NEGATIVE (NEGATIVE); URINE PROTEIN 2+ (NEGATIVE); URINE RBC 2358 /uL (0-23.9); URINE WBC 76 /uL (0-25.8)
[2023-12-01 13:03] LABS: INR 1.56 (0.83-1.09); PROTHROMBIN TIME (PATIENT) 17.7 SEC (9.7-13.0)
[2023-12-01 13:06] LABS: ACTIVATED PTT 34.2 SECONDS (25.2-36.5)
[2023-12-01 13:20] LABS: POTASSIUM 4.6 mmol/L (3.5-5.1)
[2023-12-01 13:22] LABS: ALBUMIN 3.2 g/dl (3.4-5.0); CALCIUM 8.6 mg/dL (8.5-10.1)
[2023-12-01 13:23] LABS: BLOOD UREA NITROGEN 51.4 mg/dL (7-18)
[2023-12-01 13:27] LABS: BILIRUBIN,TOTAL 1.3 mg/dL (0.2-1); LACTIC ACID 2.5 mmol/L (0.4-2.0); TOT PROT 8.1 g/dl (6.4-8.2)
[2023-12-01] MEDS: FAMOTIDINE 20 MG/50 ML IVPB 20 MG/50 ML MG IVPB ONE (13:39)
[2023-12-01 14:52] LABS: ANISOCYTOSIS 2+; MACROCYTOSIS 1+
[2023-12-01] MEDS ORDERED: DOCUSATE SODIUM 100 MG CAPSULE (FP) PO PRN (16:33)
[2023-12-01] MEDS ORDERED: LORazepam 1 MG TABLET PO PRN (16:36)
[2023-12-01] MEDS: SODIUM CHLORIDE 1,000 ML IV SCH (18:40)
[2023-12-01] MEDS: APIXABAN 5 MG TABLET PO SCH (21:15)
[2023-12-01] MEDS: LACTULOSE 20 GM/30 ML UDC (FOR ORAL USE ONLY) PO SCH (21:15)
[2023-12-01] MEDS: traZODone HCL 100 MG TABLET (FP) PO SCH (21:15)
[2023-12-01 22:36] VITALS: RESP 18; BMI 24.3
[2023-12-02 08:48] LABS: BASO % 0.5 % (0-2.0); EOS % 0.2 % (0-4.5); HEMATOCRIT 29.2 % (35.4-49); HEMOGLOBIN 9.3 GM/dL (11.7-16.9); LYMPH % 8.6 % (8-40); MCH 23.5 pg (25.7-33.7); MCHC 31.9 g/dl (32.0-35.9); MEAN CELL VOLUME 73.7 fl (80-96); MEAN PLT VOLUME 10.7 fl (7.5-11.1); MONO % 5.7 % (3.8-10.2); PLATELET COUNT 119 10^3/uL (134-434); RBC 3.96 M/mm3 (4.00-5.60); RDW 20.2 % (11.9-15.9); WHITE BLOOD COUNT 11.9 K/mm3 (4.0-10.0)
[2023-12-02 09:05] LABS: POTASSIUM 4.8 mmol/L (3.5-5.1)
[2023-12-02 09:10] LABS: BLOOD UREA NITROGEN 52.7 mg/dL (7-18)
[2023-12-02 09:12] LABS: CALCIUM 8.5 mg/dL (8.5-10.1)
[2023-12-02 09:14] LABS: CREATININE 4.2 mg/dL (0.55-1.3)
[2023-12-02] MEDS ORDERED: HYDROCHLOROTHIAZIDE 25 MG TABLET (FP) PO SCH (10:00)
[2023-12-02] MEDS: HYDROCHLOROTHIAZIDE 25 MG TABLET (FP) PO SCH (10:03)
[2023-12-02] MEDS: NIFEdipine E.R. 30 MG TABLET PO SCH (10:03)
[2023-12-02] MEDS: PANTOPRAZOLE 40 MG TABLET PO SCH (10:04)
[2023-12-02 10:47] LABS: LACTIC ACID 2.2 mmol/L (0.4-2.0)
[2023-12-02] MEDS: ACETAMINOPHEN 500 MG TABLET (FP) PO PRN (14:26)
[2023-12-02] MEDS: SODIUM CHLORIDE 0.45% 1,000 ML IV SCH (14:27)
[2023-12-02] MEDS: AMPICILLIN NA/SULBACTAM NA 3 GM in SODIUM CHLORIDE 100 ML IVPB SCH (22:34)
[2023-12-03 09:09] LABS: HEMATOCRIT 28.2 % (35.4-49); HEMOGLOBIN 9.2 GM/dL (11.7-16.9); MCHC 32.6 g/dl (32.0-35.9); MEAN CELL VOLUME 73.6 fl (80-96); PLATELET COUNT 124 10^3/uL (134-434); RBC 3.84 M/mm3 (4.00-5.60); RDW 19.7 % (11.9-15.9); WHITE BLOOD COUNT 8.6 K/mm3 (4.0-10.0)
[2023-12-03 09:42] LABS: POTASSIUM 5.1 mmol/L (3.5-5.1)
[2023-12-03 09:49] LABS: BLOOD UREA NITROGEN 49.8 mg/dL (7-18)
[2023-12-03 09:50] LABS: CALCIUM 7.8 mg/dL (8.5-10.1)
[2023-12-03 09:54] LABS: CREATININE 4.2 mg/dL (0.55-1.3)
[2023-12-03 09:55] LABS: BILIRUBIN,TOTAL 0.7 mg/dL (0.2-1)
[2023-12-03 09:56] LABS: TOT PROT 6.8 g/dl (6.4-8.2)
[2023-12-03 10:11] LABS: ALBUMIN 2.5 g/dl (3.4-5.0)
[2023-12-04 09:53] LABS: BASO % 0.8 % (0-2.0); EOS % 1.6 % (0-4.5); HEMATOCRIT 27.9 % (35.4-49); MCH 23.9 pg (25.7-33.7); MCHC 32.5 g/dl (32.0-35.9); MEAN CELL VOLUME 73.7 fl (80-96); MEAN PLT VOLUME 10.6 fl (7.5-11.1); MONO % 5.7 % (3.8-10.2); NEUT % 73.9 % (42.8-82.8); PLATELET COUNT 131 10^3/uL (134-434); RBC 3.78 M/mm3 (4.00-5.60); RDW 19.5 % (11.9-15.9); WHITE BLOOD COUNT 6.7 K/mm3 (4.0-10.0)
[2023-12-04] MEDS: PIPERACILLIN/TAZOB 4.5 GM 4.5 GM in DEXTROSE 5%-WATER 100 ML IVPB ONE (09:54)
[2023-12-04 10:09] LABS: POTASSIUM 4.8 mmol/L (3.5-5.1)
[2023-12-04 10:13] LABS: ALBUMIN 2.4 g/dl (3.4-5.0); BLOOD UREA NITROGEN 45.8 mg/dL (7-18); MAGNESIUM 2.1 mg/dL (1.8-2.4)
[2023-12-04 10:16] LABS: CREATININE 4.1 mg/dL (0.55-1.3); PHOSPHOROUS 3.6 mg/dL (2.5-4.9)
[2023-12-04 10:17] LABS: BILIRUBIN,TOTAL 0.8 mg/dL (0.2-1); TOT PROT 7.3 g/dl (6.4-8.2)
[2023-12-04] MEDS: PIPERACILLIN/TAZOB 2.25 GM 2.25 GM in DEXTROSE 5%-WATER - 50 ML IVPB SCH (18:47)
[2023-12-05 09:39] LABS: BASO % 0.6 % (0-2.0); HEMATOCRIT 26.2 % (35.4-49); HEMOGLOBIN 8.4 GM/dL (11.7-16.9); MCH 23.9 pg (25.7-33.7); MCHC 32.2 g/dl (32.0-35.9); MEAN CELL VOLUME 74.2 fl (80-96); MONO % 8.7 % (3.8-10.2); NEUT % 63.7 % (42.8-82.8); PLATELET COUNT 131 10^3/uL (134-434); RBC 3.53 M/mm3 (4.00-5.60); RDW 19.4 % (11.9-15.9)
[2023-12-05 10:01] LABS: POTASSIUM 5.1 mmol/L (3.5-5.1)
[2023-12-05 10:05] LABS: ALBUMIN 2.4 g/dl (3.4-5.0); BLOOD UREA NITROGEN 46.3 mg/dL (7-18)
[2023-12-05 10:06] LABS: CALCIUM 7.9 mg/dL (8.5-10.1)
[2023-12-05 10:09] LABS: CREATININE 4.1 mg/dL (0.55-1.3)
[2023-12-05 10:10] LABS: PHOSPHOROUS 4.2 mg/dL (2.5-4.9); TOT PROT 6.9 g/dl (6.4-8.2)
[2023-12-05 10:12] LABS: BILIRUBIN,TOTAL 1.1 mg/dL (0.2-1)
[2023-12-05] MEDS: APIXABAN 2.5 MG TABLET PO SCH (22:40)
[2023-12-07 09:19] LABS: BLOOD UREA NITROGEN 35.4 mg/dL (7-18)
[2023-12-07 09:22] LABS: CREATININE 3.7 mg/dL (0.55-1.3); PHOSPHOROUS 3.6 mg/dL (2.5-4.9)
[2023-12-07 09:34] LABS: MAGNESIUM 1.9 mg/dL (1.8-2.4)
[2023-12-07 19:08] LABS: ANTIGLOMERULAR BASEMENT MEN.AB <0.2 units (0.0-0.9)
[2023-12-08 07:59] LABS: HEMATOCRIT 26.5 % (35.4-49); HEMOGLOBIN 8.4 GM/dL (11.7-16.9); MCH 23.7 pg (25.7-33.7); MCHC 31.8 g/dl (32.0-35.9); MEAN CELL VOLUME 74.4 fl (80-96); MEAN PLT VOLUME 10.2 fl (7.5-11.1); PLATELET COUNT 213 10^3/uL (134-434); RBC 3.57 M/mm3 (4.00-5.60); RDW 19.4 % (11.9-15.9); WHITE BLOOD COUNT 5.9 K/mm3 (4.0-10.0)
[2023-12-08 08:19] LABS: POTASSIUM 4.8 mmol/L (3.5-5.1)
[2023-12-08 08:25] LABS: CALCIUM 7.8 mg/dL (8.5-10.1)
[2023-12-08 08:26] LABS: BLOOD UREA NITROGEN 34.3 mg/dL (7-18); MAGNESIUM 1.8 mg/dL (1.8-2.4)
[2023-12-08 08:29] LABS: CREATININE 3.7 mg/dL (0.55-1.3); PHOSPHOROUS 4.1 mg/dL (2.5-4.9)
[2023-12-08 15:36] VITALS: BP 100/61; PULSE 82; TEMP 98.2
[2023-12-08 16:08] LABS: C-ANCA <1:20 titer (Neg:<1:20)
== END 2023-12-08 17:40 | disposition other institution (70) | DRG 682 ==
LOC: JER 10:40 → JERBED 16:04 → J5S 20:11
PROVIDERS: ADMIT Internal Medicine; ATTEND Psychiatry & Neurology Pain Medicine
DX: N17.9 Acute kidney failure, unspecified (principal); J18.9 Pneumonia, unspecified organism; Q61.3 Polycystic kidney, unspecified; J98.11 Atelectasis; K86.2 Cyst of pancreas; I12.9 Hypertensive chronic kidney disease with stage 1 through stage 4 chronic kidney disease, or unspecified chronic kidney disease; K21.9 Gastro-esophageal reflux disease without esophagitis; D64.9 Anemia, unspecified; N18.9 Chronic kidney disease, unspecified; F19.10 Other psychoactive substance abuse, uncomplicated; K76.89 Other specified diseases of liver; K76.82 Hepatic encephalopathy
CPT/HCPCS: 0241U-QW; 36415; 71045-TC-FY; 74176-TC; 76775-TC; 80048; 80053; 81003; 82140; 82728; 83516; 83520; 83540; 83550; 83605; 83690; 83735; 84100; 84155; 84165; 85025; 85027; 85610; 85730; 86038; 86256; 86850; 86900; 86901; 87040; 87086; 87635; 87804; 87899; 93005; 93010; 94010; 97116-GP; 97162-GP; 99285-25; J0131

== ENCOUNTER 2023-12-08 18:36 | Inpatient (IN) | payer OTHER ==
[2023-12-08 19:18] VITALS: BMI 24.3
[2023-12-08] MEDS ORDERED: MAG HYDROX/AL HYDROX/SIMETH 30 ML UNIT-DOSE CUP PO PRN (20:27)
[2023-12-08] MEDS ORDERED: guaiFENesin 600 MG TABLET.ER (FP) PO PRN (20:27)
[2023-12-08] MEDS ORDERED: LOPERAMIDE HCL 2 MG CAPSULE PO PRN (20:27)
[2023-12-08] MEDS ORDERED: MAGNESIUM HYDROX 2400MG/30ML ORAL SUSPENSION 30 ML CUP PO PRN (20:27)
[2023-12-08] MEDS ORDERED: POLYETHYLENE GLYCOL (HEALTHYLAX) 3350 17 GM PACKET PO PRN (20:27)
[2023-12-08] MEDS ORDERED: BENZONATATE 200 MG CAPSULE PO PRN (20:27)
[2023-12-08] MEDS ORDERED: BENZOCAINE/MENTHOL (CHLORASEPTIC ) LOZENGE MM PRN (20:27)
[2023-12-08] MEDS: MELATONIN 5 MG TABLETS PO SCH (22:10)
[2023-12-08] MEDS: THIAMINE 100 MG TABLET PO SCH (22:10)
[2023-12-08] MEDS: APIXABAN 2.5 MG TABLET PO SCH (22:49)
[2023-12-09] MEDS: AMOX TR/POT CLAV 500MG/125MG TABLETS (FP) PO SCH (07:16)
[2023-12-09] MEDS: PRENATAL VITAMINS W/ FOLIC ACID TABLET (FP) PO SCH (10:03)
[2023-12-09] MEDS: NIFEdipine E.R. 30 MG TABLET PO SCH (10:47)
[2023-12-09] MEDS: traZODone HCL 100 MG TABLET (FP) PO SCH (21:14)
[2023-12-21] MEDS: ACETAMINOPHEN 325 MG TABLET (FP) PO PRN (09:02)
[2023-12-22 06:37] VITALS: TEMP 98.1
[2023-12-22 08:49] VITALS: BP 128/81; PULSE 60; RESP 16
== END 2023-12-22 13:49 | disposition home or self-care (01) | DRG 895 ==
LOC: YASAS 18:36 → Y3E 20:56 → UNDODISIN 12-22 09:45
PROVIDERS: ADMIT Allergy & Immunology; ATTEND Psychiatry & Neurology Pain Medicine
PROC: HZ42ZZZ Group Counseling for Substance Abuse Treatment, Cognitive-Behavioral (ICD-10-PCS; principal; 2023-12-08)
DX: F11.20 Opioid dependence, uncomplicated (principal); J18.9 Pneumonia, unspecified organism; F14.20 Cocaine dependence, uncomplicated; F19.282 Other psychoactive substance dependence with psychoactive substance-induced sleep disorder; N17.9 Acute kidney failure, unspecified; F10.20 Alcohol dependence, uncomplicated; F12.20 Cannabis dependence, uncomplicated; F17.210 Nicotine dependence, cigarettes, uncomplicated; I10 Essential (primary) hypertension; K21.9 Gastro-esophageal reflux disease without esophagitis; N28.1 Cyst of kidney, acquired; R31.9 Hematuria, unspecified; Z86.718 Personal history of other venous thrombosis and embolism; Z79.01 Long term (current) use of anticoagulants
CPT/HCPCS: 80305; 87811

== ENCOUNTER 2023-12-18 16:23 | Emergency (ER) | payer OTHER ==
[2023-12-18 17:54] VITALS: BMI 25.7
[2023-12-18 18:20] LABS: BASO % 0.8 % (0-2.0); EOS % 1.4 % (0-4.5); HEMATOCRIT 26.8 % (35.4-49); HEMOGLOBIN 8.6 GM/dL (11.7-16.9); LYMPH % 29.1 % (8-40); MCH 23.5 pg (25.7-33.7); MEAN CELL VOLUME 73.6 fl (80-96); MEAN PLT VOLUME 8.8 fl (7.5-11.1); MONO % 5.5 % (3.8-10.2); NEUT % 63.2 % (42.8-82.8); PLATELET COUNT 242 10^3/uL (134-434); RBC 3.64 M/mm3 (4.00-5.60); RDW 19.8 % (11.9-15.9); WHITE BLOOD COUNT 6.6 K/mm3 (4.0-10.0)
[2023-12-18 18:33] LABS: POTASSIUM 4.8 mmol/L (3.5-5.1)
[2023-12-18 18:35] LABS: CALCIUM 8.4 mg/dL (8.5-10.1)
[2023-12-18 18:36] LABS: ALBUMIN 2.7 g/dl (3.4-5.0); BLOOD UREA NITROGEN 47.7 mg/dL (7-18)
[2023-12-18 18:39] LABS: CREATININE 3.2 mg/dL (0.55-1.3)
[2023-12-18 18:40] LABS: BILIRUBIN,TOTAL 0.2 mg/dL (0.2-1); TOT PROT 7.8 g/dl (6.4-8.2)
[2023-12-18 19:33] LABS: EPI CELLS 13 /uL (0-25.1); HYALINE CASTS 0 /uL (0-3.1); PH,URINE 6.5 (5.0-8.0); URINE APPEARANCE CLEAR; URINE BACTERIA 0 /uL (0-1359); URINE BILIRUBIN NEGATIVE (NEGATIVE); URINE COLOR ORANGE; URINE GLUCOSE (UA) NEGATIVE (NEGATIVE); URINE KETONE NEGATIVE (NEGATIVE); URINE LEUK ESTERASE TRACE (NEGATIVE); URINE NITRITE NEGATIVE (NEGATIVE); URINE PROTEIN 2+ (NEGATIVE); URINE WBC 78 /uL (0-25.8)
[2023-12-18 19:35] LABS: URINE RBC 40891.6 /uL (0-23.9)
[2023-12-18 23:17] VITALS: BP 140/70; PULSE 80; RESP 16; TEMP 98.5
== END 2023-12-18 23:30 | disposition home or self-care (01) ==
LOC: JER 16:23
DX: R31.9 Hematuria, unspecified (principal); Q61.3 Polycystic kidney, unspecified
CPT/HCPCS: 36415; 80053; 81003; 85025; 87086; 99283-25